=== PATIENT | female | born 1985 | race Caucasian/White ===

== ENCOUNTER 2017-01-24 17:18 | Emergency (ER) | payer SELFPAY ==
[~2017-01-24] VITALS: Ht 170.2 cm; Wt 75.0 kg
[2017-01-24 17:20] VITALS: BP 134/90; PULSE 105; RESP 13; TEMP 98; O2SAT 99
--- NOTE | 2017-01-24 17:49 | PD ---
HPI Chief Complaint: Oral / Dental Pain or Problem Time Seen by Provider: 17:39 Travel History International Travel<30 days: No Contact w/Intl Traveler<30days: No Traveled to known affect area: No History of Present Illness HPI Patient comes in complaining of left upper dental pain ongoing for 3 days. Patient reports trying [id number] medication along with an old prescription of penicillin without improvement of symptoms. Pain is sharp stabbing like in nature and is worse with eating or drinking anything. Pain radiates into her left ear. Denies any nausea, vomiting, fevers, difficulty swallowing, neck pain, chest pain, shortness breath, or . PFSH Past Medical History Medical History: Denies Significant Hx Social History Alcohol Use: No Tobacco Use: No Substance Use: Yes (marijuana) Allergies-Medications (Allergen,Severity, Reaction): Coded Allergies: No Known Allergies (Unverified , 01/24/17) Reported Meds & Prescriptions Reported Meds & Active Scripts Active Clindamycin (Clindamycin HCl) 150 Mg Cap 2 Cap PO Q6H 10 Days Review of Systems Except as stated in HPI: all other systems reviewed are Neg Physical Exam Narrative GENERAL: Well-developed, well nourished, in no acute distress, and non-ill appearing. SKIN: Focused skin assessment warm and dry. HEAD: Atraumatic. Normocephalic. EYES: Pupils equal and round. EOMI. No scleral icterus. No injection or drainage. ENT: No nasal bleeding or discharge. Mucous membranes pink and moist. Poor dentition with no visible or palpable abscess. Floor the mouth, submandibular, submental are all soft to palpation. NECK: Trachea midline. No cervical lymphadenopathy. Supple. No nuclear rigidity. RESPIRATORY: No accessory muscle use. No respiratory distress. MUSCULOSKELETAL: No obvious deformities. No clubbing. No cyanosis. No edema. Full range of motion. NEUROLOGICAL: Awake and alert. No obvious cranial nerve deficits. Motor grossly within normal limits. Normal speech. PSYCHIATRIC: Appropriate mood and affect; insight and judgment normal. Data Data Last Documented VS Vital Signs Date Time Temp Pulse Resp B/P (MAP) Pulse Ox O2 Delivery O2 Flow Rate FiO2 01/24/17 17:52 01/24/17 17:20 98.0 105 13 99 MDM Medical Decision Making Medical Screen Exam Complete: Yes Emergency Medical Condition: Yes Differential Diagnosis Dental abscess, dental infection, dentalgia, other Narrative Course The patient presented with dental pain. There is no fever. There is no significant facial swelling or evidence of cellulitis. There is poor dentition but no evidence of drainable abscess at this time. There is no evidence of significant deep or invading abscess at this time. The patient will be placed on antibiotics and pain medication. The patient was instructed to follow up with a dentist. The patient was given the dental referral sheet. Warnings were discussed with the patient regarding worsening of infection. The patient is to return if pain worsens, develops progressive swelling or facial redness or fever. The patient agrees with plan. Patient in no obvious distress upon re-evaluation. All pertinent Radiology result(s) discussed with patient. Patient was asked if they wanted to speak to my attending, which the patient did not wish to do at this time. Any questions/ concerns in reference to patient diagnosis/condition discussed and clarified prior to patient's discharge. Reinforced sheer importance of close follow up with patient's primary physician or primary care clinic and dentist. Instructed patient to return to ED immediately, if symptoms return/worsen. Patient showed understanding of above instructions. Further instructions and recommendations were detailed in discharge paperwork. Patient ambulated without difficulty out of ED at discharge. Diagnosis Primary Impression: Infected dental caries Patient Instructions: Dental Abscess (ED), Dental Caries (DC), General Instructions Additional Instructions: Follow-up with your primary care physician and dentist as soon as possible. Rinse mouth with warm salt water gargles. Take all medication as prescribed. Use owtz-ozu-[id number] Tylenol and/or ibuprofen as needed for pain. Follow instructions on the packaging. Use [id number] dental cement for pain relief. Follow instructions on the packaging. Return to the emergency department if symptoms get worse. Med/Other Pt SpecificInfo: Prescription(s) given Scripts Clindamycin (Clindamycin) 150 Mg Cap 2 CAP PO Q6H for Infection for 10 Days, CAP 0 Refills Prov: Adarsh Manuel MD 01/24/17 Disposition: 01 DISCHARGE HOME Condition: Stable Dayo Hernandez Jan 24, 2017 17:49
[2017-01-24] MEDS ORDERED: CLIN1CAP5 PO (17:50)
== END 2017-01-24 18:14 | disposition home or self-care (01) ==
LOC: NEPK 17:18
DX: K02.9 Dental caries, unspecified (principal)
CPT/HCPCS: 99283

== ENCOUNTER 2017-02-07 15:40 | Emergency (ER) | payer SELFPAY ==
[~2017-02-07] VITALS: Ht 170.2 cm; Wt 73.0 kg
[~2017-02-07 15:40] MED LIST: CLIN1CAP5 PO
[2017-02-07 15:42] VITALS: BP 145/70; PULSE 109; RESP 18; TEMP 97.7; O2SAT 99
[2017-02-07] MEDS ORDERED: SODIUM CHLOR 0.9% 1000 ML INJ 1,000 ML IV SCH (17:59)
[2017-02-07] MEDS ORDERED: ALUMINUM/MAGNESIUM/SIMETH 30 ML CUP PO ONE (18:00)
[2017-02-07] MEDS ORDERED: DICYCLOMINE HCL 10 MG CAP PO ONE (18:00)
[2017-02-07] MEDS ORDERED: SODIUM CHLORIDE 0.9% FLUSH 10 ML FLUSH IV FLUSH PRN (18:00)
[2017-02-07] MEDS ORDERED: PANTOPRAZOLE SODIUM 40 MG VIAL IVP ONE (18:00)
[2017-02-07] MEDS ORDERED: LIDOCAINE VISCOUS 2% SOLN 15 ML UDC PO ONE (18:00)
[2017-02-07] MEDS ORDERED: ONDANSETRON HCL 4 MG/2 ML VIAL IVP ONE (18:00)
[2017-02-07 18:19] LABS: AUTOMATED NEUTROPHIL # 5.7 TH/MM3 (1.8-7.7); BASOPHIL % 0.4 % (0.0-2.0); EOSINOPHIL # 0.2 TH/MM3 (0-0.4); EOSINOPHIL % 1.9 % (0.0-4.0); HEMATOCRIT 39.1 % (35.0-46.0); HEMO FLAGS DIFF FINAL; LYMPH % 28.8 % (9.0-44.0); LYMPHOCYTE # 2.7 TH/MM3 (1.0-4.8); MEAN CELL VOLUME 94.2 FL (80.0-100.0); MEAN CORPUSCULAR HEMOGLOBIN 32.5 PG (27.0-34.0); MEAN CORPUSCULAR HGB CONC 34.5 % (32.0-36.0); MONO % 8.7 % (0.0-8.0); NEUT % 60.2 % (16.0-70.0); PLATELET COUNT 227 TH/MM3 (150-450); RED BLOOD COUNT 4.15 MIL/MM3 (4.00-5.30); WHITE BLOOD COUNT 9.5 TH/MM3 (4.0-11.0)
[2017-02-07 18:52] LABS: ANION GAP 7 MEQ/L (5-15); AST (GOT) 12 U/L (15-37); BICARBONATE 25.5 MEQ/L (21.0-32.0); BLOOD UREA NITROGEN 14 MG/DL (7-18); CHLORIDE 107 MEQ/L (98-107); GLOMERULAR FILTRATION RATE 81 ML/MIN (>89); SODIUM (NA) 139 MEQ/L (136-145)
[2017-02-07 18:53] LABS: ALT (GPT) 17 U/L (10-53)
[2017-02-07 18:56] LABS: ALKALINE PHOSPHATASE 70 U/L (45-117)
[2017-02-07] MEDS ORDERED: ZOFR4TAB3 SL (19:03)
[2017-02-07] MEDS ORDERED: OMEP20TA PO (19:03)
--- NOTE | 2017-02-07 19:03 | PD ---
HPI Chief Complaint: Abdominal Pain Time Seen by Provider: 17:55 Travel History International Travel<30 days: No Contact w/Intl Traveler<30days: No Traveled to known affect area: No History of Present Illness HPI 31 yo F c/o epigastric abdominal pain x approx 1 day. Previously Nexium and Zantact had been helpful however she ran out having relocated from [place]. Nausea and vomiting x 3 is reported. Pt describes pain as gas like. No hematemesis. No fever. No vb/vd. PFSH Past Medical History ?: Not LMP: 01/2017 Social History Alcohol Use: No Tobacco Use: No Substance Use: Yes (marijuana) Allergies-Medications (Allergen,Severity, Reaction): Coded Allergies: No Known Allergies (Unverified , 02/07/17) Reported Meds & Prescriptions Reported Meds & Active Scripts Active Zofran Odt (Ondansetron Odt) 4 Mg Tab 4 Mg SL Q8HR PRN Omeprazole 20 Mg Tab 20 Mg PO DAILY Clindamycin (Clindamycin HCl) 150 Mg Cap 2 Cap PO Q6H 10 Days Review of Systems Except as stated in HPI: all other systems reviewed are Neg General / Constitutional: No: Fever Gastrointestinal: Positive: Nausea, Vomiting, Abdominal Pain Physical Exam Narrative GENERAL: 31 yo F, WNWD, mild distress 2/2 pain SKIN: Warm and dry. HEAD: Atraumatic. Normocephalic. EYES: Pupils equal and round. No scleral icterus. No injection or drainage. ENT: No nasal bleeding or discharge. Mucous membranes pink and moist. NECK: Trachea midline. No JVD. CARDIOVASCULAR: Regular rate and rhythm. RESPIRATORY: No accessory muscle use. Clear to auscultation. Breath sounds equal bilaterally. GASTROINTESTINAL: Soft. Minimal epigastric TTP. No rebound. MUSCULOSKELETAL: Extremities without clubbing, cyanosis, or edema. No obvious deformities. NEUROLOGICAL: Awake and alert. No obvious cranial nerve deficits. Motor grossly within normal limits. Five out of 5 muscle strength in the arms and legs. Normal speech. PSYCHIATRIC: Appropriate mood and affect; insight and judgment normal. Data Data Last Documented VS Vital Signs Date Time Temp Pulse Resp B/P (MAP) Pulse Ox O2 Delivery O2 Flow Rate FiO2 02/07/17 15:42 97.7 109 18 145/70 (95) 99 VS reviewed; HR trended down to 65 Orders Orders Complete Blood Count With Diff (02/07/17 17:59) Comprehensive Metabolic Panel (02/07/17 17:59) Lipase (02/07/17 17:59) Iv Access Insert/Monitor (02/07/17 17:59) Ecg Monitoring (02/07/17 17:59) Oximetry (02/07/17 17:59) Ondansetron Inj (Zofran Inj) (02/07/17 18:00) Pantoprazole Inj (Protonix Inj) (02/07/17 18:00) Sodium Chlor 0.9% 1000 Ml Inj (Ns 1000 M (02/07/17 17:59) Sodium Chloride 0.9% Flush (Ns Flush) (02/07/17 18:00) Dicyclomine (Bentyl) (02/07/17 18:00) Al-Mag Hy-Si 40-40-4 Mg/Ml Liq (Mag-Al P (02/07/17 18:00) Lidocaine 2% Viscous (Xylocaine 2% Visco (02/07/17 18:00) Ed Urine Pregnancytest Poc (02/07/17 17:59) Labs Laboratory Tests Test 02/07/17 18:09 White Blood Count 9.5 TH/MM3 Red Blood Count 4.15 MIL/MM3 Hemoglobin 13.5 GM/DL Hematocrit 39.1 % Mean Corpuscular Volume 94.2 FL Mean Corpuscular Hemoglobin 32.5 PG Mean Corpuscular Hemoglobin Concent 34.5 % Red Cell Distribution Width 13.0 % Platelet Count 227 TH/MM3 Mean Platelet Volume 9.6 FL Neutrophils (%) (Auto) 60.2 % Lymphocytes (%) (Auto) 28.8 % Monocytes (%) (Auto) 8.7 % Eosinophils (%) (Auto) 1.9 % Basophils (%) (Auto) 0.4 % Neutrophils # (Auto) 5.7 TH/MM3 Lymphocytes # (Auto) 2.7 TH/MM3 Monocytes # (Auto) 0.8 TH/MM3 Eosinophils # (Auto) 0.2 TH/MM3 Basophils # (Auto) 0.0 TH/MM3 CBC Comment DIFF FINAL Differential Comment Blood Urea Nitrogen 14 MG/DL Creatinine 0.82 MG/DL Random Glucose 95 MG/DL Total Protein 7.2 GM/DL Albumin 4.0 GM/DL Calcium Level 8.9 MG/DL Alkaline Phosphatase 70 U/L Aspartate Amino Transf (AST/SGOT) 12 U/L Alanine Aminotransferase (ALT/SGPT) 17 U/L Total Bilirubin 1.0 MG/DL Sodium Level 139 MEQ/L Potassium Level 4.0 MEQ/L Chloride Level 107 MEQ/L Carbon Dioxide Level 25.5 MEQ/L Anion Gap 7 MEQ/L Estimat Glomerular Filtration Rate 81 ML/MIN Lipase 277 U/L MDM Medical Decision Making Medical Screen Exam Complete: Yes Emergency Medical Condition: Yes Medical Record Reviewed: Yes Differential Diagnosis Gastritis, pancreatitis, appendicitis, acute cholecystitis, ascending cholangitis, AAA, perforated viscous, mesenteric ischemia, hepatitis, cystitis, hydronephrosis/hydroureter/nephroureter calculus, mesenteric adenitis, biliary colic Narrative Course CBC & BMP Diagram 02/07/17 18:09 Total Protein 7.2, Albumin 4.0, Calcium Level 8.9, Alkaline Phosphatase 70, Aspartate Amino Transf (AST/SGOT) 12 L, Alanine Aminotransferase (ALT/SGPT) 17, Total Bilirubin 1.0 Lipase normal The patient is resting comfortably and feels better, is alert and in no distress. The patients results and examination findings were discussed. The repeat examination is unremarkable and benign. The history, exam, diagnostic testing, and current condition do not suggest any significant pathology to warrant further testing, continued ED treatment, admission, or surgical evaluation at this point. The vital signs have been stable. The patient does not have uncontrollable pain, intractable vomiting, or other significant symptoms. The patient's condition is stable and appropriate for discharge. The patient will pursue further outpatient evaluation with a primary care physician or other designated or consulting physician as indicated in the discharge instructions. The patient expressed understanding and was agreeable with this plan. Diagnosis Primary Impression: Gastritis Qualified Codes: K29.50 - Unspecified chronic gastritis without bleeding Additional Impression: Vomiting Qualified Codes: R11.2 - Nausea with vomiting, unspecified Referrals: [facility] 2 days Additional Instructions: You have a choice when it comes to health care, and we are glad that you chose [facility]. Hopefully, we have met your expectations on today's visit. You are welcome to return to [facility] at any time, as we are committed to meeting the health care needs of our community. Med/Other Pt SpecificInfo: Prescription(s) given Scripts Ondansetron Odt (Zofran Odt) 4 Mg Tab 4 MG SL Q8HR Y for Nausea/Vomiting, #10 TAB 0 Refills Prov: Adarsh Manuel MD 02/07/17 Omeprazole (Omeprazole) 20 Mg Tab 20 MG PO DAILY, #30 TAB 0 Refills Prov: Adarsh Manuel MD 02/07/17 Disposition: 01 DISCHARGE HOME Condition: Stable Adarsh Manuel MD Feb 07, 2017 19:03
[2017-02-07 19:48] VITALS: BP 132/75
== END 2017-02-07 19:50 | disposition home or self-care (01) ==
LOC: NEPD 15:40
DX: K29.70 Gastritis, unspecified, without bleeding (principal); Z79.899 Other long term (current) drug therapy
CPT/HCPCS: 80053; 83690; 85025; 96374; 96375; 99284; C9113; J2405; J7030

== ENCOUNTER 2017-05-17 13:12 | Emergency (ER) | payer SELFPAY ==
[~2017-05-17] VITALS: Ht 170.2 cm; Wt 73.0 kg
[~2017-05-17 13:12] MED LIST changes: +CLIN150C14 PO; -CLIN1CAP5 PO; +OMEP20TA93 PO; +ZOFR4TAB3 SL
[2017-05-17 13:14] VITALS: BP 115/71; PULSE 73; RESP 16; TEMP 97.9; O2SAT 97
[2017-05-17] MEDS ORDERED: PERI0.126 SWISH-SPIT (14:06)
[2017-05-17] MEDS ORDERED: AMOX500C PO (14:06)
[2017-05-17] MEDS ORDERED: IBUP1TAB7 PO (14:06)
--- NOTE | 2017-05-17 14:07 | PD ---
HPI Chief Complaint: Oral / Dental Pain or Problem Time Seen by Provider: 14:01 Travel History International Travel<30 days: No Contact w/Intl Traveler<30days: No Traveled to known affect area: No History of Present Illness HPI 31-year-old female presents to emergency department complaining of left upper dental pain that started today. She said a small piece of her tooth chipped off and it feels like there is a hole in her tooth. Denies sore throat, difficulty swallowing, unusual drooling. Denies fever, vomiting. Has taken Tylenol for symptom management. Rates pain 10/10. Describes it as a throbbing sensation. Radiates to left year. Constantly aggravated. No known relieving factors. No known allergies. No primary care provider. Denies significant past medical history. Has no medical complaints. No other modifying factors or associated signs and symptoms. PFSH Past Medical History Diminished Hearing: No ?: Not Social History Alcohol Use: No Tobacco Use: No Substance Use: Yes (marijuana) Allergies-Medications (Allergen,Severity, Reaction): Coded Allergies: No Known Allergies (Unverified Adverse Reaction, Unknown, 05/17/17) Reported Meds & Prescriptions Reported Meds & Active Scripts Active Ibuprofen 800 Mg Tab 800 Mg PO Q6HR PRN Peridex Liq (Chlorhexidine Gluconate (Mouth) Liq) 0.12% Soln 15 Ml SWISH-SPIT BID 10 Days Amoxicillin 500 Mg Cap 500 Mg PO BID 10 Days Zofran Odt (Ondansetron Odt) 4 Mg Tab 4 Mg SL Q8HR PRN Omeprazole 20 Mg Tab 20 Mg PO DAILY Clindamycin (Clindamycin HCl) 150 Mg Cap 2 Cap PO Q6H 10 Days Review of Systems Except as stated in HPI: all other systems reviewed are Neg Physical Exam Narrative GENERAL: Well-nourished, well-developed female patient, in no acute distress; afebrile, nontoxic-appearing SKIN: Warm and dry. HEAD: Atraumatic. Normocephalic. No facial edema, erythema, tenderness on palpation. No lymphadenopathy. EYES: Pupils equal and round. No scleral icterus. No injection or drainage. ENT: Mucosa pink and moist. No erythema or exudates. No uvular edema. No uvular , palatal, or tonsillar deviation. Airway patent. EARS: Bilateral pinnae and external canals appear within normal limits. Bilateral tympanic membranes without erythema, dullness or perforation. MOUTH: Mucous membranes moist, no lesions, tongue and gums appear normal. Left upper wisdom tooth with tenderness on palpation; with large dental cavity and decay. Surrounding gingiva is without erythema, edema, drainage. No obvious abscess noted. NECK: Trachea midline. No lymphadenopathy. CARDIOVASCULAR: Regular rate. RESPIRATORY: No accessory muscle use. GASTROINTESTINAL: Rounded. MUSCULOSKELETAL: No obvious deformities. No clubbing. No cyanosis. No edema. NEUROLOGICAL: Awake and alert. Oriented 3. No obvious cranial nerve deficits. Motor grossly within normal limits. Normal speech. PSYCHIATRIC: Appropriate mood and affect; insight and judgment normal. Data Data Last Documented VS Vital Signs Date Time Temp Pulse Resp B/P (MAP) Pulse Ox O2 Delivery O2 Flow Rate FiO2 05/17/17 14:24 05/17/17 13:14 97.9 73 16 97 Room Air Orders Orders Ketorolac Inj (Toradol Inj) (05/17/17 14:15) Ed Discharge Order (05/17/17 14:07) [facility] Medical Decision Making Medical Screen Exam Complete: Yes Emergency Medical Condition: Yes Medical Record Reviewed: Yes Differential Diagnosis Infected dental cavity, dental caries, dental abscess, dentalgia Narrative Course 31-year-old male with large dental cavity and decay and tooth pain to October wisdom tooth. No facial edema or erythema. Patient is afebrile and nontoxic appearing. Denies fever, vomiting. Toradol administered in the ER. Ibuprofen , amoxicillin, Peridex mouth rinse prescribed for home. Instructed patient to follow up with dentist. Emergency dental information sheet provided. Instructed patient to follow up with primary care provider. Patient verbalizes understanding and agreement with treatment plan. Patient is medically cleared and stable for discharge. Discussed reasons to return to the emergency department. Patient agrees with treatment plan. The patients vital signs are stable and the patient is stable for outpatient follow-up and treatment. Patient discharged home, stable and in no acute distress. Diagnosis Primary Impression: Toothache Additional Impression: Dental cavities Referrals: Dentist Primary Care Physician Patient Instructions: Dental Abscess (ED), Dental Caries (ED), General Instructions, Toothache (ED) Additional Instructions: Complete full course of antibiotics Ibuprofen or Tylenol as directed and as needed to reduce pain and inflammation Use Peridex as directed for oral hygiene Warm or cool compresses to the affected area Follow-up with dentist Follow-up with primary care provider Return to emergency department immediately with worsening of symptoms Med/Other Pt SpecificInfo: Prescription(s) given Scripts Ibuprofen (Ibuprofen) 800 Mg Tab 800 MG PO Q6HR Y for PAIN, #30 TAB 0 Refills Prov: Glo Fournier 05/17/17 Chlorhexidine Gluconate (Mouth) Liq (Peridex Liq) 0.12% Soln 15 ML SWISH-SPIT BID for 10 Days, #300 ML 0 Refills Prov: Glo Fournier 05/17/17 Amoxicillin (Amoxicillin) 500 Mg Cap 500 MG PO BID for Infection for 10 Days, #20 CAP 0 Refills Prov: Glo Fournier 05/17/17 Disposition: 01 DISCHARGE HOME Condition: Stable Glo Fournier May 17, 2017 14:06
[2017-05-17] MEDS ORDERED: KETOROLAC TROMETHAMINE 60 MG/2 ML (IM) VIAL IM ONE (14:15)
== END 2017-05-17 14:31 | disposition home or self-care (01) ==
LOC: NEPK 13:12
DX: K02.9 Dental caries, unspecified (principal); Z79.899 Other long term (current) drug therapy
CPT/HCPCS: 96372; 99284; J1885

== ENCOUNTER 2017-06-13 13:59 | Observation (INO) | payer SELFPAY ==
[~2017-06-13] VITALS: Ht 170.2 cm; Wt 75.0 kg
[~2017-06-13 13:59] MED LIST changes: +AMOX500C PO; +IBUP1TAB7 PO; +PERI0.126 SWISH-SPIT
[2017-06-13 14:01] VITALS: BP 140/65; PULSE 100; RESP 24; TEMP 97.6; O2SAT 96
--- NOTE | 2017-06-13 14:26 | PD ---
HPI Chief Complaint: Respiratory Symptoms Time Seen by Provider: 14:17 Travel History International Travel<30 days: No Contact w/Intl Traveler<30days: No Traveled to known affect area: No History of Present Illness HPI This is a 31-year-old female who reports that she has a history of mild asthma resents for any shortness of breath. She says for 2 days she has been increasingly short of breath, constant, severe,, feeling like she is breathing through a straw. She denies any associated cough, sputum production, fevers or chills. She has never had a problem like this before. [facility] Past Medical History Diminished Hearing: No Social History Alcohol Use: No Tobacco Use: No Substance Use: Yes (marijuana) Allergies-Medications (Allergen,Severity, Reaction): Coded Allergies: No Known Allergies (Unverified Adverse Reaction, Unknown, 05/17/17) Reported Meds & Prescriptions Reported Meds & Active Scripts Active Review of Systems Except as stated in HPI: all other systems reviewed are Neg Physical Exam Narrative GENERAL: Moderate respiratory distress SKIN: Focused skin assessment warm and dry. HEAD: Atraumatic. Normocephalic. EYES: Pupils equal and round. No injection or drainage. ENT: Moist mucous membranes NECK: Trachea midline. CARDIOVASCULAR: Regular rate and rhythm. No murmur appreciated. RESPIRATORY: Tachypnea, increased work of breathing, diffuse wheezing, speaking 2-3 word sentences GASTROINTESTINAL: Abdomen soft, non-tender, nondistended. MUSCULOSKELETAL: No obvious deformities. NEUROLOGICAL: Awake and alert. No obvious cranial nerve deficits. Moving all extremities PSYCHIATRIC: Appropriate mood and affect; insight and judgment normal. Data Data Last Documented VS Vital Signs Date Time Temp Pulse Resp B/P (MAP) Pulse Ox O2 Delivery O2 Flow Rate FiO2 06/13/17 16:55 106 22 123/69 (87) 96 Room Air 06/13/17 14:01 97.6 Orders Orders Complete Blood Count With Diff (06/13/17 14:24) Comprehensive Metabolic Panel (06/13/17 14:24) Chest, Single Ap (06/13/17 14:24) Ecg Monitoring (06/13/17 14:24) Iv Access Insert/Monitor (06/13/17 14:24) Oximetry (06/13/17 14:24) Oxygen Administration (06/13/17 14:24) Methylprednisolone So Succ Inj (Solumedr (06/13/17 14:30) Albuterol-Ipratropium Neb (Duoneb Neb) (06/13/17 14:30) Sodium Chloride 0.9% Flush (Ns Flush) (06/13/17 14:30) Acetaminophen (Tylenol) (06/13/17 15:15) Lorazepam Inj (Ativan Inj) (06/13/17 16:00) Ketorolac Inj (Toradol Inj) (06/13/17 16:15) Albuterol Concentrated Neb (Albuterol Co (06/13/17 17:30) Admit Order (Ed Use Only) (06/13/17 17:27) Labs Laboratory Tests Test 06/13/17 14:35 06/13/17 15:11 White Blood Count 11.2 TH/MM3 Red Blood Count 4.34 MIL/MM3 Hemoglobin 14.4 GM/DL Hematocrit 39.5 % Mean Corpuscular Volume 91.1 FL Mean Corpuscular Hemoglobin 33.3 PG Mean Corpuscular Hemoglobin Concent 36.5 % Red Cell Distribution Width 13.1 % Platelet Count 247 TH/MM3 Mean Platelet Volume 10.1 FL Neutrophils (%) (Auto) 70.6 % Lymphocytes (%) (Auto) 19.3 % Monocytes (%) (Auto) 7.0 % Eosinophils (%) (Auto) 2.2 % Basophils (%) (Auto) 0.9 % Neutrophils # (Auto) 7.9 TH/MM3 Lymphocytes # (Auto) 2.2 TH/MM3 Monocytes # (Auto) 0.8 TH/MM3 Eosinophils # (Auto) 0.2 TH/MM3 Basophils # (Auto) 0.1 TH/MM3 CBC Comment AUTO DIFF Differential Comment AUTO DIFF CONFIRMED Platelet Estimate NORMAL Platelet Morphology Comment ENLARGED Red Cell Morphology Comment NORMAL Blood Urea Nitrogen 11 MG/DL Creatinine 0.72 MG/DL Random Glucose 101 MG/DL Total Protein 7.1 GM/DL Albumin 3.8 GM/DL Calcium Level 8.5 MG/DL Alkaline Phosphatase 61 U/L Aspartate Amino Transf (AST/SGOT) 15 U/L Alanine Aminotransferase (ALT/SGPT) 15 U/L Total Bilirubin 1.1 MG/DL Sodium Level 142 MEQ/L Potassium Level 3.5 MEQ/L Chloride Level 112 MEQ/L Carbon Dioxide Level 21.6 MEQ/L Anion Gap 8 MEQ/L Estimat Glomerular Filtration Rate 94 ML/MIN MDM Medical Decision Making Medical Screen Exam Complete: Yes Emergency Medical Condition: Yes Interpretation(s) afebrile, mild tachycardia leukocytosis electrolytes within normal limits no acute process Differential Diagnosis Acute asthma exacerbation, bronchitis, pneumonia, pneumothorax Narrative Course This is a 31-year-old female who presents to the emergency department with shortness of breath it has been going on for several days. She is acutely dyspneic on exam, speaking 2-3 word sentences. She is diffusely wheezing consistent with asthma. She was given serial bronchodilators and steroids. Chest x-ray is reassuring. Patient continues to have wheezing and is tachypneic. I think she requires observation for continued treatment of asthma. Physician Communication Physician Communication Discussed with Dr. Kim Diagnosis Primary Impression: Asthma exacerbation Qualified Codes: J45.41 - Moderate persistent asthma with (acute) exacerbation Admitting Information Admitting Physician Requests: Observation Rubi Holland MD Jun 13, 2017 14:26
[2017-06-13] MEDS ORDERED: SODIUM CHLORIDE 0.9% FLUSH 10 ML FLUSH IVF PRN (14:30)
[2017-06-13] MEDS ORDERED: methylPREDNISolone SOD SUCC 125 MG/2 ML VIAL IV PUSH ONE (14:30)
[2017-06-13] MEDS: RESP: ALBUTEROL 2.5 MG/IPRATROPIUM 0.5 MG NEB (SCH) INH ×2 (14:37→14:38)
[2017-06-13 14:56] LABS: AUTOMATED NEUTROPHIL # 7.9 TH/MM3 (1.8-7.7); BASOPHIL # 0.1 TH/MM3 (0-0.2); BASOPHIL % 0.9 % (0.0-2.0); EOSINOPHIL # 0.2 TH/MM3 (0-0.4); EOSINOPHIL % 2.2 % (0.0-4.0); HEMATOCRIT 39.5 % (35.0-46.0); HEMOGLOBIN 14.4 GM/DL (11.6-15.3); LYMPH % 19.3 % (9.0-44.0); LYMPHOCYTE # 2.2 TH/MM3 (1.0-4.8); MEAN CELL VOLUME 91.1 FL (80.0-100.0); MEAN CORPUSCULAR HEMOGLOBIN 33.3 PG (27.0-34.0); MEAN PLATELET VOLUME 10.1 FL (7.0-11.0); MONOCYTE # 0.8 TH/MM3 (0-0.9); NEUT % 70.6 % (16.0-70.0); PLATELET COUNT 247 TH/MM3 (150-450); RED BLOOD COUNT 4.34 MIL/MM3 (4.00-5.30); RED CELL DISTRIBUTION WIDTH 13.1 % (11.6-17.2); WHITE BLOOD COUNT 11.2 TH/MM3 (4.0-11.0)
[2017-06-13 14:59] LABS: MEAN CORPUSCULAR HGB CONC 36.5 % (32.0-36.0)
--- NOTE | 2017-06-13 15:00 | RADRPT ---
EXAM DATE/TIME: 06/13/2017 14:28 [place] COMPARISON: No previous studies available for comparison. INDICATIONS : Wheezing. MEDICAL HISTORY : asthma SURGICAL HISTORY : None. ENCOUNTER: Initial ACUITY: 2 days PAIN SCORE: 0/10 LOCATION: Bilateral chest FINDINGS: A single view of the chest demonstrates the lungs to be symmetrically aerated without evidence of mas s, infiltrate or effusion. The cardiomediastinal contours are unremarkable. Osseous structures are intact. CONCLUSION: No acute disease. Isrrael Kumari MD FACR on June 13, 2017 at 14:57 Board Certified Radiologist. This report was verified electronically.
[2017-06-13] MEDS ORDERED: ACETAMINOPHEN 500 MG CPLT PO ONE (15:15)
[2017-06-13 15:43] LABS: ALBUMIN 3.8 GM/DL (3.4-5.0); ALT (GPT) 15 U/L (10-53); AST (GOT) 15 U/L (15-37); BICARBONATE 21.6 MEQ/L (21.0-32.0); BLOOD UREA NITROGEN 11 MG/DL (7-18); CALCIUM 8.5 MG/DL (8.5-10.1); CHLORIDE 112 MEQ/L (98-107); CREATININE 0.72 MG/DL (0.50-1.00); GLOMERULAR FILTRATION RATE 94 ML/MIN (>89); GLUCOSE,RANDOM 101 MG/DL (74-106); SODIUM (NA) 142 MEQ/L (136-145)
[2017-06-13 15:45] LABS: ALKALINE PHOSPHATASE 61 U/L (45-117); TOTAL BILIRUBIN ADULT 1.1 MG/DL (0.2-1.0); TOTAL PROTEIN 7.1 GM/DL (6.4-8.2)
[2017-06-13] MEDS ORDERED: LORazepam 2 MG/ML VIAL IV PUSH ONE (16:00)
[2017-06-13] MEDS ORDERED: KETOROLAC TROMETHAMINE 30 MG/ML (IVP) VIAL IV PUSH ONE (16:15)
[2017-06-13 16:55] VITALS: BP 123/69; PULSE 106; RESP 22; O2SAT 96
[2017-06-13] MEDS ORDERED: RESP: ALBUTEROL CONC 2.5 MG/0.5 ML NEB NEB ONE (17:30)
--- NOTE | 2017-06-13 17:33 | HHI.HP ---
[facility] No Primary Care Physician Admission Diagnosis asthma exacerbation Diagnoses: Chief Complaint: Shortness of breath Travel History International Travel<30 Days: No Contact w/Intl Traveler <30 Da: No Traveled to Known Affected Are: No History of Present Illness This is a pleasant 31 y/o Female with history of Asthma, who started with Shortness of breath and came to ER She says for 2 days she has been increasingly short of breath, constant, severe, , feeling like she is breathing through a straw. She denies any associated cough, sputum production, fevers or chills. the patient states she is been very anxious asking for anxiety medicine, will be observed for the next 23 hours and may be discharged in am tomorrow, will give IV fluids, will take drug screen and follow. Review of Systems Constitutional: DENIES: Fever, Chills, Change in appetite Endocrine: DENIES: Heat/cold intolerance Eyes: DENIES: Blurred vision, Eye pain Respiratory: COMPLAINS OF: Shortness of breath Psychiatric: COMPLAINS OF: Anxiety Except as stated in HPI: all other systems reviewed are Neg Past Family Social History Past Medical History Asthma Past Surgical History Denies any Surgical History Reported Medications Reported Meds & Active Scripts Active Allergies: Coded Allergies: No Known Allergies (Unverified Adverse Reaction, Unknown, 05/17/17) Active Ordered Medications Current Medications Medications (Trade) Dose Ordered Sig/Mary Alice Route Start Time Stop Time Status Last Admin (NS Flush) 2 ml UNSCH PRN IVF 06/13/17 14:30 06/13/17 16:16 Sodium Chloride 1,000 ml @ 100 mls/hr Q10H IV 06/13/17 17:34 UNV (NS Flush) 2 ml UNSCH PRN IV FLUSH 06/13/17 17:45 UNV (NS Flush) 2 ml BID IV FLUSH 06/13/17 21:00 UNV (Tylenol) 650 mg Q4H PRN PO 06/13/17 17:45 UNV (Zofran Inj) 4 mg Q6H PRN IVP 06/13/17 17:45 UNV (Lovenox Inj) 40 mg Q24H SQ 06/13/17 17:45 UNV (Narcan Inj) 0.4 mg UNSCH PRN IV PUSH 06/13/17 17:45 UNV (Senokot) 17.2 mg Q12H PRN PO 06/13/17 17:45 UNV (Dulcolax Supp) 10 mg DAILY PRN RECTAL 06/13/17 17:45 UNV (Lactulose Liq) 30 ml DAILY PRN PO 06/13/17 17:45 UNV (Duoneb Neb) 1 ampule Q4HR NEB NEB 06/13/17 20:00 UNV (Mucinex Er) 600 mg BID PO 06/13/17 21:00 UNV Family History Mother with CAD and DM II Social History marijuana abuse Physical Exam Vital Signs Vital Signs Date Time Temp Pulse Resp B/P (MAP) Pulse Ox O2 Delivery O2 Flow Rate FiO2 06/13/17 16:55 106 22 123/69 (87) 96 Room Air 06/13/17 14:01 97.6 100 24 140/65 (90) 96 Physical Exam GENERAL: Alert and Oriented, no distress. SKIN: Focused skin assessment warm and dry. HEAD: Atraumatic. Normocephalic. EYES: Pupils equal and round. No injection or drainage. ENT: Moist mucous membranes NECK: Trachea midline. CARDIOVASCULAR: Regular rate and rhythm. No murmur appreciated. tachycardia. RESPIRATORY: expiratory wheezing is mild and no crackles. good breath sounds. GASTROINTESTINAL: Abdomen soft, non-tender, nondistended. MUSCULOSKELETAL: No obvious deformities. NEUROLOGICAL: Awake and alert. No obvious cranial nerve deficits. Moving all extremities PSYCHIATRIC: Appropriate mood and affect; insight and judgment normal. Laboratory Laboratory Tests Test 06/13/17 14:35 06/13/17 15:11 White Blood Count 11.2 Red Blood Count 4.34 Hemoglobin 14.4 Hematocrit 39.5 Mean Corpuscular Volume 91.1 Mean Corpuscular Hemoglobin 33.3 Mean Corpuscular Hemoglobin Concent 36.5 Red Cell Distribution Width 13.1 Platelet Count 247 Mean Platelet Volume 10.1 Neutrophils (%) (Auto) 70.6 Lymphocytes (%) (Auto) 19.3 Monocytes (%) (Auto) 7.0 Eosinophils (%) (Auto) 2.2 Basophils (%) (Auto) 0.9 Neutrophils # (Auto) 7.9 Lymphocytes # (Auto) 2.2 Monocytes # (Auto) 0.8 Eosinophils # (Auto) 0.2 Basophils # (Auto) 0.1 CBC Comment AUTO DIFF Differential Comment AUTO DIFF CONFIRMED Platelet Estimate NORMAL Platelet Morphology Comment ENLARGED Red Cell Morphology Comment NORMAL Blood Urea Nitrogen 11 Creatinine 0.72 Random Glucose 101 Total Protein 7.1 Albumin 3.8 Calcium Level 8.5 Alkaline Phosphatase 61 Aspartate Amino Transf (AST/SGOT) 15 Alanine Aminotransferase (ALT/SGPT) 15 Total Bilirubin 1.1 Sodium Level 142 Potassium Level 3.5 Chloride Level 112 Carbon Dioxide Level 21.6 Anion Gap 8 Estimat Glomerular Filtration Rate 94 Result Diagram: 06/13/17 1435 06/13/17 1511 Imaging Last Impressions Chest X-Ray 06/13/17 1424 Signed Impressions: Service Date/Time: Tuesday, June 13, 2017 14:28 - CONCLUSION: No acute disease. Isrrael Kumari MD FACR Caprini VTE Risk Assessment Caprini VTE Risk Assessment: No/Low Risk (score <= 1) Caprini Risk Assessment Model Point Value = 1 Point Value = 2 Point Value = 3 Point Value = 5 Age 41-60 Minor surgery BMI > 25 kg/m2 Swollen legs Varicose veins or History of unexplained or recurrent spontaneous Oral contraceptives or hormone replacement Sepsis (< 1 month) Serious lung disease, including pneumonia (< 1 month) Abnormal pulmonary function Acute myocardial infarction Congestive heart failure (< 1 month) History of inflammatory bowel disease Medical patient at bed rest Age 61-74 Arthroscopic surgery Major open surgery (> 45 min) Laparoscopic surgery (> 45 min) Malignancy Confined to bed (> 72 hours) Immobilizing plaster cast Central venous access Age >= 75 History of VTE Family history of VTE Factor V Leiden Prothrombin [id number] Lupus anticoagulant Anticardiolipin antibodies Elevated serum homocysteine Heparin-induced thrombocytopenia Other congenital or acquired thrombophilia Stroke (< 1 month) Elective arthroplasty Hip, pelvis, or leg fracture Acute spinal cord injury (< 1 month) Prophylaxis Regimen Total Risk Factor Score Risk Level Prophylaxis Regimen 0-1 Low Early ambulation 2 Moderate Order ONE of the following: *Sequential Compression Device (SCD) *Heparin 5000 units SQ BID 3-4 Higher Order ONE of the following medications: *Heparin 5000 units SQ TID *Enoxaparin/Lovenox 40 mg SQ daily (WT < 150 kg, CrCl > 30 mL/min) *Enoxaparin/Lovenox 30 mg SQ daily (WT < 150 kg, CrCl > 10-29 mL/min) *Enoxaparin/Lovenox 30 mg SQ BID (WT < 150 kg, CrCl > 30 mL/min) AND/OR *Sequential Compression Device (SCD) 5 or more Highest Order ONE of the following medications: *Heparin 5000 units SQ TID (Preferred with Epidurals) *Enoxaparin/Lovenox 40 mg SQ daily (WT < 150 kg, CrCl > 30 mL/min) *Enoxaparin/Lovenox 30 mg SQ daily (WT < 150 kg, CrCl > 10-29 mL/min) *Enoxaparin/Lovenox 30 mg SQ BID (WT < 150 kg, CrCl > 30 mL/min) AND *Sequential Compression Device (SCD) Assessment and Plan Assessment and Plan 1. Acute Asthma attack was admitted for observation will get Laboratory and continue Duoneb treatments, Mucolytic and Incentive spirometry. 2. marijuana abuse strongly recommended to stop smoking 3. Anxiety disorder, Ativan as needed for anxiety 4. Low back pain chronic on Toradol as needed DVT prophylaxis with Lovenox Code Status Full Code. Discussed Condition With Rubi Holland MD, Guillermo MD Jun 13, 2017 17:33
[2017-06-13] MEDS ORDERED: SENNOSIDES 8.6 MG TAB PO PRN (17:45)
[2017-06-13] MEDS ORDERED: LACTULOSE SYRUP 20 GM/30 ML CUP PO PRN (17:45)
[2017-06-13] MEDS ORDERED: ONDANSETRON HCL 4 MG/2 ML VIAL IVP PRN (17:45)
[2017-06-13] MEDS ORDERED: NALOXONE HCL 0.4 MG/ML AMP IV PUSH PRN (17:45)
[2017-06-13] MEDS ORDERED: BISACODYL 10 MG SUPP RECTAL PRN (17:45)
[2017-06-13] MEDS ORDERED: SODIUM CHLORIDE 0.9% FLUSH 10 ML FLUSH IV FLUSH PRN (17:45)
[2017-06-13] MEDS ORDERED: ACETAMINOPHEN 325 MG TAB PO PRN (17:45)
[2017-06-13] MEDS: LORazepam 0.5 MG TAB PO PRN (19:48)
[2017-06-13] MEDS ORDERED: ENOXAPARIN SODIUM 40 MG/0.4 ML SYRINGE SQ SCH (20:00)
[2017-06-13] MEDS: KETOROLAC TROMETHAMINE 10 MG TAB PO PRN (20:02)
[2017-06-13] MEDS: RESP: ALBUTEROL 2.5 MG/IPRATROPIUM 0.5 MG NEB (SCH) NEB ×2 (20:06→23:56)
[2017-06-13 20:27] VITALS: BP 133/69; PULSE 88; RESP 18; TEMP 98.8; O2SAT 99
[2017-06-13] MEDS: guaiFENesin E.R. 600 MG TAB PO SCH (21:59)
[2017-06-13] MEDS: SODIUM CHLORIDE 0.9% FLUSH 10 ML FLUSH IV FLUSH SCH (22:02)
[2017-06-13 22:08] LABS: BILIRUBIN, URINE NEG (NEG); BLOOD, URINE SMALL (NEG); GLUCOSE,URINE NEG (NEG); KETONE, URINE NEG (NEG); MUCUS URINE FEW /lpf (OCC); NITRITE,URINE NEG (NEG); SQUAMOUS EPITHELIAL CELL URINE <1 /hpf (0-5); URINE COLOR LIGHT-YELLOW (YELLW/STRAW); URINE LEUKOCYTE ESTERASE NEG (NEG)
[2017-06-14] VITALS: BP 112/56; PULSE 98; RESP 20; TEMP 97.5; O2SAT 99
[2017-06-14] MEDS ORDERED: LORazepam 1 MG TAB PO ONE (00:45)
[2017-06-14] MEDS: RESP: ALBUTEROL 2.5 MG/IPRATROPIUM 0.5 MG NEB (SCH) NEB ×4 (03:14→16:00)
[2017-06-14 05:01] VITALS: BP 117/57; PULSE 97; RESP 20; TEMP 98; O2SAT 100
[2017-06-14] MEDS: SODIUM CHLOR 0.9% 1000 ML INJ 1,000 ML IV SCH ×2 (06:05→14:12)
[2017-06-14 07:27] VITALS: O2SAT 99
[2017-06-14 08:01] VITALS: BP 129/66; PULSE 108; RESP 18; TEMP 97.4; O2SAT 97
--- NOTE | 2017-06-14 08:15 | HHI.PR ---
Subjective Remarks Follow up for asthma exacerbation. The patient reports feeling slightly better today however still with nonproductive cough, wheezing, and shortness of breath. She is tearful and anxious which she believes is worse with the steroids and nebs. Denies any chest pain. Denies any fevers/chills. She does not feel ready for discharge. Objective Vitals Vital Signs Date Time Temp Pulse Resp B/P (MAP) Pulse Ox O2 Delivery O2 Flow Rate FiO2 06/14/17 08:01 97.4 108 18 129/66 (87) 97 06/14/17 07:27 99 21 06/14/17 05:01 98.0 97 20 117/57 (77) 100 06/14/17 00:00 97.5 98 20 112/56 (74) 99 06/13/17 20:27 98.8 88 18 133/69 (90) 99 06/13/17 16:55 106 22 123/69 (87) 96 Room Air 06/13/17 14:01 97.6 100 24 140/65 (90) 96 Result Diagram: 06/13/17 1435 06/13/17 1511 Imaging Last Impressions Chest X-Ray 06/13/17 1424 Signed Impressions: Service Date/Time: Tuesday, June 13, 2017 14:28 - CONCLUSION: No acute disease. Isrrael Kumari MD FACR Objective Remarks GENERAL: Well-nourished, well-developed patient in [facility]. SKIN: Warm and dry. No rash. HEENT: Normocephalic. Atraumatic. Pupils equal and round. Mucous membranes pink and moist. NECK: Supple. Trachea midline. CARDIOVASCULAR: Regular rate and rhythm. S1, S2 noted. No murmur appreciated. RESPIRATORY: No accessory muscle use. Diffuse expiratory wheezing. Breath sounds equal bilaterally. GASTROINTESTINAL: Abdomen soft, non-tender, nondistended. Normoactive bowel sounds x4. MUSCULOSKELETAL: No obvious deformities. Extremities without clubbing, cyanosis , or edema. NEUROLOGICAL: Awake and alert. No obvious cranial nerve deficits. Motor grossly within normal limits. Normal speech. PSYCHIATRIC: Tearful, anxious mood; insight and judgment normal. Medications and IVs Current Medications Medications (Trade) Dose Ordered Sig/Mary Alice Route Start Time Stop Time Status Last Admin Sodium Chloride 1,000 ml @ 100 mls/hr Q10H IV 06/13/17 19:00 06/14/17 06:05 (NS Flush) 2 ml UNSCH PRN IV FLUSH 06/13/17 17:45 (NS Flush) 2 ml BID IV FLUSH 06/13/17 21:00 06/14/17 08:53 (Tylenol) 650 mg Q4H PRN PO 06/13/17 17:45 (Zofran Inj) 4 mg Q6H PRN IVP 06/13/17 17:45 (Lovenox Inj) 40 mg Q24H SQ 06/13/17 20:00 06/13/17 19:48 (Narcan Inj) 0.4 mg UNSCH PRN IV PUSH 06/13/17 17:45 (Senokot) 17.2 mg Q12H PRN PO 06/13/17 17:45 (Dulcolax Supp) 10 mg DAILY PRN RECTAL 06/13/17 17:45 (Lactulose Liq) 30 ml DAILY PRN PO 06/13/17 17:45 (Duoneb Neb) 1 ampule Q4HR NEB NEB 06/13/17 20:00 06/14/17 07:26 (Mucinex Er) 600 mg BID PO 06/13/17 21:00 06/14/17 08:55 (Toradol) 10 mg Q6H PRN PO 06/13/17 18:15 06/18/17 18:14 06/14/17 08:55 (Ativan) 0.5 mg Q6H PRN PO 06/13/17 18:15 06/14/17 08:56 A/P Assessment and Plan 31-year-old female with history of asthma presents with shortness of breath and cough Acute Asthma Exacerbation: CXR images reviewed, no acute findings. Afebrile, no leukocytosis. +significant wheezing on exam. -S/p IV Solumedrol 125mg x1 and duonebs in the ER with minimal relief -Will continue with IV Solumedrol 40mg q8h -Continue duonebs q4h scheduled -Continue mucinex bid and tessalon tid -Monitor for improvement Marijuana Use: -counseled on cessation, especially with asthma Anxiety disorder: acute, exacerbated by steroids/nebs -Ativan as needed for anxiety -Needs outpatient f/up with PCP or psychiatry Chronic Low Back Pain: chronic -Continue on Toradol as needed DVT prophylaxis with Lovenox Discharge Planning Pending further clinical improvement. Not yet ready for discharge. Possibly later this afternoon or tomorrow. 1600hrs: Jacqui POWELL informed me patient is signing out AGAINST MEDICAL ADVICE. She does not want to wait for proper discharge. Apparently patient is yelling on the unit and made comments to the nurse about wanting pain medications. Discharge patient AGAINST MEDICAL ADVICE Condition on discharge: Improved Regular Diet as tolerated Ad Karly activity Rx written: Follow-up with primary care physician Aracely Nuñez PA-C Jun 14, 2017 8:15 am
[2017-06-14] MEDS: SODIUM CHLORIDE 0.9% FLUSH 10 ML FLUSH IV FLUSH SCH (08:53)
[2017-06-14] MEDS: guaiFENesin E.R. 600 MG TAB PO SCH (08:55)
[2017-06-14] MEDS: KETOROLAC TROMETHAMINE 10 MG TAB PO PRN (08:55)
[2017-06-14] MEDS: LORazepam 0.5 MG TAB PO PRN ×2 (08:56→15:37)
[2017-06-14] MEDS ORDERED: methylPREDNISolone SOD SUCC 40 MG/1 ML VIAL IV PUSH ONE (09:00)
[2017-06-14] MEDS ORDERED: BENZONATATE 100 MG CAP PO ONE (10:00)
[2017-06-14 11:48] VITALS: BP 124/70; PULSE 107; RESP 18; TEMP 97.5; O2SAT 97
[2017-06-14] MEDS ORDERED: BENZONATATE 100 MG CAP PO SCH (13:00)
--- NOTE | 2017-06-14 16:01 | PD.AMA ---
Against Medical Advice Note Diagnosis: (1) Asthma exacerbation Discharge Disposition: Against Medical Advice Pt Condition on Discharge: Stable AMA Statement Patient Opal Stephen has decided to leave the hospital against medical advice. This patient has the capacity to refuse care and understands the risks of leaving, including permanent disability and/or , and has had an opportunity to ask questions about her condition. The patient has been informed that she may return for care at any time, and follow up has been arranged/ advised. Aracely Nuñez PA-C Jun 14, 2017 4:01 pm
[2017-06-14] MEDS ORDERED: methylPREDNISolone SOD SUCC 40 MG/1 ML VIAL IV PUSH SCH (17:00)
== END 2017-06-14 17:15 | disposition home or self-care (01) ==
LOC: NEPD 13:59 → NEDA 17:28 → NEPFCDU 19:08
PROVIDERS: ADMIT Hospitalist; ATTEND Hospitalist
DX: J45.41 Moderate persistent asthma with (acute) exacerbation (principal); F12.10 Cannabis abuse, uncomplicated; F41.9 Anxiety disorder, unspecified; M54.5 Low back pain; G89.29 Other chronic pain
CPT/HCPCS: 71045; 80053; 81001; 85025; 94150; 94640; 94664; 96361; 96372; 96374; 96375; 96376; 99285; G0378; J1650; J1885; J2060; J2920; J2930; J7030; J7611

== ENCOUNTER 2017-07-03 14:49 | Emergency (ER) | payer SELFPAY ==
[~2017-07-03] VITALS: Ht 170.2 cm; Wt 75.0 kg
[2017-07-03 14:59] VITALS: BP 142/71; PULSE 84; RESP 26; TEMP 97.8; O2SAT 98
[2017-07-03] MEDS ORDERED: ALBUAER3 INH (16:17)
[2017-07-03] MEDS ORDERED: PRED20 PO (16:17)
[2017-07-03 16:18] VITALS: PULSE 104; O2SAT 98
[2017-07-03] MEDS ORDERED: predniSONE 20 MG TAB PO ONE (16:45)
--- NOTE | 2017-07-03 16:46 | PD ---
HPI Chief Complaint: Respiratory Symptoms Time Seen by Provider: 16:32 Travel History International Travel<30 days: No Contact w/Intl Traveler<30days: No Traveled to known affect area: No History of Present Illness HPI The patient was seen and examined in the presence of the nurse. Patient complains of shortness of breath. She presents dyspneic and actively wheezing. Symptoms moderately severe. No alleviating factors. Duration 3 days. He does have a chronic dry cough. No fever or chest pain. He supposed to be taking prednisone but has not taken it for a few days. No exacerbating factors. She does not smoke, quit 1 year ago [facility] Past Medical History Asthma: Yes Anxiety: Yes Diminished Hearing: No ?: Not Past Surgical History Cholecystectomy: Yes Social History Alcohol Use: No Tobacco Use: No Substance Use: Yes (marijuana) Allergies-Medications (Allergen,Severity, Reaction): Coded Allergies: No Known Allergies (Unverified Allergy, Unknown, 06/13/17) Reported Meds & Prescriptions Reported Meds & Active Scripts Active Reported Prednisone 20 Mg Tab 20 Mg PO DAILY Proair Hfa 8.5 GM Inh (Albuterol Sulfate) 90 Mcg/Act Aer 2 Puff INH Q4-6H PRN 108 mcg/actuation Review of Systems General / Constitutional: No: Fever Eyes: No: Visual changes HENT: No: Headaches Cardiovascular: No: Chest Pain or Discomfort Respiratory: Positive: Cough, Shortness of Breath, Wheezing Gastrointestinal: No: Abdominal Pain Genitourinary: No: Dysuria Musculoskeletal: No: Pain Skin: No Rash Neurologic: No: Weakness Psychiatric: No: Depression Endocrine: No: Polydipsia Hematologic/Lymphatic: No: Easy Bruising Physical Exam Narrative GENERAL: Well-nourished, well-developed patient with shortness of breath . SKIN: Focused skin assessment reveals no rash and nodules. Skin is Warm and dry. HEAD: Atraumatic. Normocephalic. EYES: Pupils equal and round. No scleral icterus. No injection or drainage. ENT: No nasal bleeding or discharge. Mucous membranes pink and moist. NECK: Trachea midline. No JVD. CARDIOVASCULAR: Regular rate and rhythm. No murmur appreciated. RESPIRATORY: Some accessory muscle use. Diffuse expiratory wheezing. Breath sounds equal bilaterally. GASTROINTESTINAL: Abdomen soft, non-tender, nondistended. Hepatic and splenic margins not palpable. MUSCULOSKELETAL: No obvious deformities. No clubbing. No cyanosis. No edema. NEUROLOGICAL: Awake and alert. No obvious cranial nerve deficits. Motor grossly within normal limits. Normal speech. PSYCHIATRIC: Appropriate mood and affect; insight and judgment normal. Data Data Last Documented VS Vital Signs Date Time Temp Pulse Resp B/P (MAP) Pulse Ox O2 Delivery O2 Flow Rate FiO2 07/03/17 16:50 98 07/03/17 16:18 104 07/03/17 14:59 97.8 26 142/71 (94) Orders Orders Oximetry (07/03/17 16:38) Prednisone (Deltasone) (07/03/17 16:45) Albuterol-Ipratropium Neb (Duoneb Neb) (07/03/17 16:45) Oxycodone-Acetamin 5-325 Mg (Percocet (07/03/17 17:15) Albuterol-Ipratropium Neb (Duoneb Neb) (07/03/17 18:30) Ketorolac Inj (Toradol Inj) (07/03/17 18:30) MDM Medical Decision Making Medical Screen Exam Complete: Yes Emergency Medical Condition: Yes Medical Record Reviewed: Yes Differential Diagnosis Asthma exacerbation, pneumonia, dyspnea, bronchitis Narrative Course I have reviewed the patient's electronic medical record. Patient was hospitalized for 1 night about 3 weeks ago for asthma I gave her she is 3 nebulizer treatments and a large dose of prednisone We will reassess after the above treatments On reassessment she is much improved. She still has a little residual wheeze. I gave her a fourth nebulizer treatment For her back pain I gave her 2 pain pills and a Toradol injection. I think she strained her low back coughing. There has been no injury or neurologic deficit After all the above she is much improved. She has prednisone to take at home. The patient was advised to follow up with their physician and return if they worsen. Diagnosis Primary Impression: Asthma attack Qualified Codes: J45.31 - Mild persistent asthma with (acute) exacerbation Additional Instructions: The patient was advised to follow up with their physician and return if they worsen. Med/Other Pt SpecificInfo: Other Disposition: 01 DISCHARGE HOME Condition: Stable Edmund Duffy MD Jul 03, 2017 16:46
[2017-07-03 16:50] VITALS: O2SAT 98
[2017-07-03] MEDS: RESP: ALBUTEROL 2.5 MG/IPRATROPIUM 0.5 MG NEB (SCH) INH ×2 (17:02→17:03)
[2017-07-03] MEDS ORDERED: oxyCODONE/ACETAMINOPHEN 5 MG/325 MG TAB PO ONE (17:15)
[2017-07-03] MEDS ORDERED: KETOROLAC TROMETHAMINE 60 MG/2 ML (IM) VIAL IM ONE (18:30)
[2017-07-03] MEDS ORDERED: RESP: ALBUTEROL 2.5 MG/IPRATROPIUM 0.5 MG NEB (SCH) NEB ONE (18:30)
== END 2017-07-03 18:55 | disposition home or self-care (01) ==
LOC: NEPC 14:49
DX: J45.31 Mild persistent asthma with (acute) exacerbation (principal); F12.90 Cannabis use, unspecified, uncomplicated
CPT/HCPCS: 94640; 94664; 96372; 99283; J1885; J7512

== ENCOUNTER 2017-07-06 14:31 | Observation (INO) | payer SELFPAY ==
[~2017-07-06] VITALS: Ht 170.2 cm; Wt 74.0 kg
[~2017-07-06 14:31] MED LIST changes: +ALBUAER3 INH; -AMOX500C PO; -CLIN150C14 PO; -IBUP1TAB7 PO; -OMEP20TA93 PO; -PERI0.126 SWISH-SPIT; +PRED20 PO; -ZOFR4TAB3 SL
[2017-07-06 14:40] VITALS: BP 103/70; PULSE 99; RESP 30; TEMP 98.4; O2SAT 97
[2017-07-06] MEDS ORDERED: methylPREDNISolone SOD SUCC 125 MG/2 ML VIAL IV PUSH ONE (16:45)
[2017-07-06] MEDS: RESP: ALBUTEROL 2.5 MG/IPRATROPIUM 0.5 MG NEB (SCH) INH ×2 (16:55→16:56)
--- NOTE | 2017-07-06 17:20 | RADRPT ---
EXAM DATE/TIME: 07/06/2017 16:54 [place] COMPARISON: CHEST SINGLE AP, June 13, 2017, 14:28. INDICATIONS : Chest pain, cough, shortness of breath, and congestion for two days. MEDICAL HISTORY : Asthma. SURGICAL HISTORY : None. ENCOUNTER: Initial ACUITY: 2 days PAIN SCORE: 0/10 LOCATION: Bilateral chest FINDINGS: A single view of the chest demonstrates the lungs to be symmetrically aerated without evidence of mas s, infiltrate or effusion. The cardiomediastinal contours are unremarkable. Osseous structures are intact. CONCLUSION: No acute disease. Erwin Norman MD on July 06, 2017 at 17:17 Board Certified Radiologist. This report was verified electronically.
[2017-07-06] MEDS: MAGNESIUM SULFATE 1 GM PREMIX 100 ML IV SCH ×2 (17:45→18:36)
[2017-07-06] MEDS ORDERED: KETOROLAC TROMETHAMINE 30 MG/ML (IVP) VIAL IV PUSH ONE (17:45)
--- NOTE | 2017-07-06 17:46 | PD ---
HPI Chief Complaint: Respiratory Distress Time Seen by Provider: 16:43 Travel History International Travel<30 days: No Contact w/Intl Traveler<30days: No Traveled to known affect area: No History of Present Illness HPI 31-year-old female, with history of asthma, who presents to the emergency department with complaint of chest tightness, shortness of breath, wheezing that has worsened since 9 AM this morning. Asthma exacerbation started 2 days ago. She was seen here July 03 for asthma exacerbation. And she says she was admitted about 2 weeks ago for asthma exacerbation also. Reports cough. Denies fever, vomiting. Denies recent illness. Is also complaining of left lower back pain 3 days. Denies injury. Denies medical paresis, incontinence, saddle anesthesias. Denies IV drug use or cancer. Denies urinary symptoms. Tried using her pro-air inhaler 5 times a day with minimal relief. Has not taken any medication for her back pain. Has been taking steroids 20 mg daily for her asthma. Symptoms are moderate in severity. Denies tobacco use. Reports secondhand smoke in her home. No known allergies. No primary care provider. History of asthma. Has no other medical complaints. No other modifying factors or associated signs and symptoms. PFSH Past Medical History Asthma: Yes Anxiety: Yes Diminished Hearing: No Respiratory: Yes (ASTHMA) ?: Not Past Surgical History Cholecystectomy: Yes Social History Alcohol Use: No Tobacco Use: No Substance Use: Yes (marijuana) Allergies-Medications (Allergen,Severity, Reaction): Coded Allergies: No Known Allergies (Unverified Allergy, Unknown, 07/06/17) Reported Meds & Prescriptions Reported Meds & Active Scripts Active Reported Prednisone 20 Mg Tab 20 Mg PO DAILY Proair Hfa 8.5 GM Inh (Albuterol Sulfate) 90 Mcg/Act Aer 2 Puff INH Q4-6H PRN 108 mcg/actuation Review of Systems Except as stated in HPI: all other systems reviewed are Neg Physical Exam Narrative GENERAL: Well-nourished, well-developed female patient; afebrile, nontoxic-appearing; anxious appearing SKIN: Warm and dry. HEAD: Atraumatic. Normocephalic. EYES: Pupils equal and round. No scleral icterus. No injection or drainage. ENT: Mucosa pink and moist. No erythema or exudates. No uvular edema. No uvular , palatal, or tonsillar deviation. Airway patent. Nares without nasal blood, purulent drainage or septal hematoma. EARS: Bilateral pinnae and external canals appear within normal limits. Bilateral tympanic membranes without erythema, dullness or perforation. NECK: Trachea midline. No lymphadenopathy. CARDIOVASCULAR: Tachycardic rate and rhythm in 110-120. No murmur appreciated. RESPIRATORY: Tachypneic 20-30 breaths per minute. No accessory muscle use. Lungs with Wheezing throughout to auscultation. Breath sounds equal bilaterally. No retractions. No Audible wheezing noted. GASTROINTESTINAL: Rounded. MUSCULOSKELETAL: Bilateral lower extremities supple and non-tense with 2+ pedal pulses and sensory intact; with full range of motion and 5/5 strength. Active dorsiflexion and extension of bilateral feet. Ambulatory in room with normal gait. Sitting up in bed at 90. No obvious deformities. No clubbing. No cyanosis. No edema. BACK: No midline point tenderness on palpation of the lumbar spine. Tenderness on palpation of left lumbar iliosacral area. No obvious deformities. NEUROLOGICAL: Awake and alert. Oriented 3. No obvious cranial nerve deficits. Motor grossly within normal limits. Normal speech. Moves all extremities. 5/5 strength to all extremities. PSYCHIATRIC: Appropriate mood and affect; insight and judgment normal. Data Data Last Documented VS Vital Signs Date Time Temp Pulse Resp B/P (MAP) Pulse Ox O2 Delivery O2 Flow Rate FiO2 07/06/17 14:40 98.4 99 30 103/70 (81) 97 Orders Orders Iv Access Insert/Monitor (07/06/17 16:44) Methylprednisolone So Succ Inj (Solumedr (07/06/17 16:45) Albuterol-Ipratropium Neb (Duoneb Neb) (07/06/17 16:45) Chest, Single Ap (07/06/17 16:44) Ketorolac Inj (Toradol Inj) (07/06/17 17:45) Hydroxyzine Pamoate (Vistaril) (07/06/17 17:45) Magnesium Sulfate 1 Gm Premix (Magnesium (07/06/17 17:45) Complete Blood Count With Diff (07/06/17 19:15) Comprehensive Metabolic Panel (07/06/17 19:15) Ecg Monitoring (07/06/17 19:15) Oximetry (07/06/17 19:15) Oxygen Administration (07/06/17 19:15) Sodium Chloride 0.9% Flush (Ns Flush) (07/06/17 19:15) Albuterol Neb (Albuterol Neb) (07/06/17 19:15) Acetaminophen (Tylenol) (07/06/17 20:45) Cyclobenzaprine (Flexeril) (07/06/17 20:45) Admit Order (Ed Use Only) (07/06/17 ) Labs Laboratory Tests Test 07/06/17 19:30 White Blood Count 12.9 TH/MM3 Red Blood Count 4.37 MIL/MM3 Hemoglobin 13.8 GM/DL Hematocrit 39.0 % Mean Corpuscular Volume 89.2 FL Mean Corpuscular Hemoglobin 31.5 PG Mean Corpuscular Hemoglobin Concent 35.3 % Red Cell Distribution Width 12.3 % Platelet Count 239 TH/MM3 Mean Platelet Volume 9.7 FL Neutrophils (%) (Auto) 95.7 % Lymphocytes (%) (Auto) 2.7 % Monocytes (%) (Auto) 1.3 % Eosinophils (%) (Auto) 0.1 % Basophils (%) (Auto) 0.2 % Neutrophils # (Auto) 12.3 TH/MM3 Lymphocytes # (Auto) 0.3 TH/MM3 Monocytes # (Auto) 0.2 TH/MM3 Eosinophils # (Auto) 0.0 TH/MM3 Basophils # (Auto) 0.0 TH/MM3 CBC Comment DIFF FINAL Differential Comment Blood Urea Nitrogen 9 MG/DL Creatinine 0.92 MG/DL Random Glucose 174 MG/DL Total Protein 7.8 GM/DL Albumin 4.1 GM/DL Calcium Level 9.0 MG/DL Alkaline Phosphatase 81 U/L Aspartate Amino Transf (AST/SGOT) 38 U/L Alanine Aminotransferase (ALT/SGPT) 50 U/L Total Bilirubin 1.7 MG/DL Sodium Level 138 MEQ/L Potassium Level 3.8 MEQ/L Chloride Level 107 MEQ/L Carbon Dioxide Level 19.3 MEQ/L Anion Gap 12 MEQ/L Estimat Glomerular Filtration Rate 71 ML/MIN [facility] Medical Decision Making Medical Screen Exam Complete: Yes Emergency Medical Condition: Yes Medical Record Reviewed: Yes Differential Diagnosis Asthma exacerbation, anxiety, left-sided low back pain Narrative Course 31-year-old female with history of asthma with asthma exacerbation and left- sided low back pain. Denies injury. Denies encopresis, incontinence, saddle anesthesias. Denies IV drug use or cancer. Patient is tachypneic and tachycardic. She appears anxious. Lungs with wheezing throughout. No audible wheezing. DuoNeb 3, Solu-Medrol, Toradol ordered. 1739: Patient continues to be anxious appearing, tachycardic, tachypneic and with diffuse wheezing throughout on auscultation of the lung hunt. Dr. Trevino, my attending physician, evaluated the patient and recommended Vistaril and 2 g of magnesium. Orders entered. 1899: Dr. Trevino assumed patient care at this time. See her note for final patient disposition. Diagnosis Primary Impression: Asthma exacerbation Qualified Codes: J45.901 - Unspecified asthma with (acute) exacerbation Additional Impression: Acute left-sided low back pain Qualified Codes: M54.5 - Low back pain Glo Fournier Jul 06, 2017 17:46
--- NOTE | 2017-07-06 18:20 | PD ---
Physical Exam Narrative I, Dr. Trevino, have reviewed the advance practice practitioner's documentation and am in agreement, met with the patient face to face, made the diagnosis, and the medical decision making was done by me. *My assessment and Findings: Patient is a 31 year old female who comes in complaining of SOB. She has history of asthma. She says she lives with smokers. Exam shows diffuse wheezing and coarse breath sounds. She is speaking in full sentences. Data Data Last Documented VS Vital Signs Date Time Temp Pulse Resp B/P (MAP) Pulse Ox O2 Delivery O2 Flow Rate FiO2 07/06/17 14:40 98.4 99 30 103/70 (81) 97 Orders Orders Iv Access Insert/Monitor (07/06/17 16:44) Methylprednisolone So Succ Inj (Solumedr (07/06/17 16:45) Albuterol-Ipratropium Neb (Duoneb Neb) (07/06/17 16:45) Chest, Single Ap (07/06/17 16:44) Ketorolac Inj (Toradol Inj) (07/06/17 17:45) Hydroxyzine Pamoate (Vistaril) (07/06/17 17:45) Magnesium Sulfate 1 Gm Premix (Magnesium (07/06/17 17:45) Complete Blood Count With Diff (07/06/17 19:15) Comprehensive Metabolic Panel (07/06/17 19:15) Ecg Monitoring (07/06/17 19:15) Oximetry (07/06/17 19:15) Oxygen Administration (07/06/17 19:15) Sodium Chloride 0.9% Flush (Ns Flush) (07/06/17 19:15) Albuterol Neb (Albuterol Neb) (07/06/17 19:15) Acetaminophen (Tylenol) (07/06/17 20:45) Cyclobenzaprine (Flexeril) (07/06/17 20:45) Labs Laboratory Tests Test 07/06/17 19:30 White Blood Count 12.9 TH/MM3 Red Blood Count 4.37 MIL/MM3 Hemoglobin 13.8 GM/DL Hematocrit 39.0 % Mean Corpuscular Volume 89.2 FL Mean Corpuscular Hemoglobin 31.5 PG Mean Corpuscular Hemoglobin Concent 35.3 % Red Cell Distribution Width 12.3 % Platelet Count 239 TH/MM3 Mean Platelet Volume 9.7 FL Neutrophils (%) (Auto) 95.7 % Lymphocytes (%) (Auto) 2.7 % Monocytes (%) (Auto) 1.3 % Eosinophils (%) (Auto) 0.1 % Basophils (%) (Auto) 0.2 % Neutrophils # (Auto) 12.3 TH/MM3 Lymphocytes # (Auto) 0.3 TH/MM3 Monocytes # (Auto) 0.2 TH/MM3 Eosinophils # (Auto) 0.0 TH/MM3 Basophils # (Auto) 0.0 TH/MM3 CBC Comment DIFF FINAL Differential Comment Blood Urea Nitrogen 9 MG/DL Creatinine 0.92 MG/DL Random Glucose 174 MG/DL Total Protein 7.8 GM/DL Albumin 4.1 GM/DL Calcium Level 9.0 MG/DL Alkaline Phosphatase 81 U/L Aspartate Amino Transf (AST/SGOT) 38 U/L Alanine Aminotransferase (ALT/SGPT) 50 U/L Total Bilirubin 1.7 MG/DL Sodium Level 138 MEQ/L Potassium Level 3.8 MEQ/L Chloride Level 107 MEQ/L Carbon Dioxide Level 19.3 MEQ/L Anion Gap 12 MEQ/L Estimat Glomerular Filtration Rate 71 ML/MIN MDM Supervised Visit with NAM: Yes Narrative Course Patient given 3 duonebs, solumedrol and Magnesium. She is complaining of back pain. Given Toradol, Tylenol and Flexeril. She continued to wheeze, given 2 more albuterol treatments. She says she is still feeling very short of breath. She will be placed in observation for further management. Diagnosis Primary Impression: Asthma exacerbation Qualified Codes: J45.901 - Unspecified asthma with (acute) exacerbation Admitting Information Admitting Physician Requests: Observation Tootie Trevino MD Jul 06, 2017 18:20
[2017-07-06] MEDS ORDERED: SODIUM CHLORIDE 0.9% FLUSH 10 ML FLUSH IVF PRN (19:15)
[2017-07-06] MEDS: RESP: ALBUTEROL 2.5 MG/3 ML NEB (SCH) INH ×2 (19:35→19:36)
[2017-07-06 20:02] LABS: AUTOMATED NEUTROPHIL # 12.3 TH/MM3 (1.8-7.7); BASOPHIL % 0.2 % (0.0-2.0); EOSINOPHIL % 0.1 % (0.0-4.0); HEMOGLOBIN 13.8 GM/DL (11.6-15.3); LYMPH % 2.7 % (9.0-44.0); LYMPHOCYTE # 0.3 TH/MM3 (1.0-4.8); MEAN CELL VOLUME 89.2 FL (80.0-100.0); MEAN CORPUSCULAR HEMOGLOBIN 31.5 PG (27.0-34.0); MEAN CORPUSCULAR HGB CONC 35.3 % (32.0-36.0); MEAN PLATELET VOLUME 9.7 FL (7.0-11.0); MONO % 1.3 % (0.0-8.0); MONOCYTE # 0.2 TH/MM3 (0-0.9); NEUT % 95.7 % (16.0-70.0); PLATELET COUNT 239 TH/MM3 (150-450); RED BLOOD COUNT 4.37 MIL/MM3 (4.00-5.30); RED CELL DISTRIBUTION WIDTH 12.3 % (11.6-17.2); WHITE BLOOD COUNT 12.9 TH/MM3 (4.0-11.0)
[2017-07-06 20:27] LABS: ALBUMIN 4.1 GM/DL (3.4-5.0); AST (GOT) 38 U/L (15-37); BICARBONATE 19.3 MEQ/L (21.0-32.0); BLOOD UREA NITROGEN 9 MG/DL (7-18); CHLORIDE 107 MEQ/L (98-107); CREATININE 0.92 MG/DL (0.50-1.00); GLOMERULAR FILTRATION RATE 71 ML/MIN (>89); GLUCOSE,RANDOM 174 MG/DL (74-106); SODIUM (NA) 138 MEQ/L (136-145)
[2017-07-06 20:30] LABS: ALKALINE PHOSPHATASE 81 U/L (45-117); ALT (GPT) 50 U/L (10-53); TOTAL BILIRUBIN ADULT 1.7 MG/DL (0.2-1.0); TOTAL PROTEIN 7.8 GM/DL (6.4-8.2)
[2017-07-06] MEDS ORDERED: ACETAMINOPHEN 325 MG TAB PO ONE (20:45)
[2017-07-06] MEDS ORDERED: CYCLOBENZAPRINE HCL 10 MG TAB PO ONE (20:45)
--- NOTE | 2017-07-06 20:59 | HHI.HP ---
[facility] No Primary Care Physician Admission Diagnosis Asthma exacerbation Diagnoses: (1) Asthma exacerbation Diagnosis: Principal (2) Dehydration Diagnosis: Principal Travel History International Travel<30 Days: No Contact w/Intl Traveler <30 Da: No Traveled to Known Affected Are: No History of Present Illness This is a 31-year-old female with a PMH of Anxiety and Asthma who was sent to the ER with complaints of SOB and wheezing since this morning. Seen in ER on 07/03/17 for similar symptoms, s/p Steroids/DuoNeb w/ improvement and discharged home. Today, w/ recurrent symptoms. Denies fever, chills, cough or sick contacts. On arrival, BP 103/70, HR 99, O2 sat 97% on RA, Afebrile. WBC 12.9. Chemistry unremarkable. GFR 71. CXR with no acute findings. On exam, patient with expiratory wheezing despite multiple DuoNeb treatments and Solu- Medrol. Review of Systems Except as stated in HPI: all other systems reviewed are Neg ROS: 14 point review of systems otherwise negative. Past Family Social History Past Medical History PMH: Anxiety and Asthma Past Surgical History PAST SURGICAL HISTORY: Cholecystectomy Allergies: Coded Allergies: No Known Allergies (Unverified Allergy, Unknown, 07/06/17) Family History PAST FAMILY HISTORY: Reviewed. No h/o DM or CAD Social History PAST SOCIAL HISTORY: Denies alcohol or tobacco. Positive for Marijuana. Physical Exam Vital Signs Vital Signs Date Time Temp Pulse Resp B/P (MAP) Pulse Ox O2 Delivery O2 Flow Rate FiO2 07/06/17 14:40 98.4 99 30 103/70 (81) 97 Physical Exam PE: GENERAL: An female in no acute distress. HEENT: PERRLA, EOMI. No scleral icterus or conjunctival pallor. No lid lag or facial droop. CARDIOVASCULAR: Regular rate and rhythm. No obvious murmurs to auscultation. No chest tenderness to palpation. RESPIRATORY: No obvious rhonchi, expiratory wheezing. Clear to auscultation. Breath sounds equal bilaterally. GASTROINTESTINAL: Abdomen soft, non-tender, nondistended. BS normal. MUSCULOSKELETAL: Extremities without clubbing, cyanosis, or edema. No obvious deformities. NEUROLOGICAL: Awake, alert and oriented x4. No focal neurologic deficits. Moving both upper and lower extremities spontaneously. Laboratory Laboratory Tests Test 07/06/17 19:30 White Blood Count 12.9 Red Blood Count 4.37 Hemoglobin 13.8 Hematocrit 39.0 Mean Corpuscular Volume 89.2 Mean Corpuscular Hemoglobin 31.5 Mean Corpuscular Hemoglobin Concent 35.3 Red Cell Distribution Width 12.3 Platelet Count 239 Mean Platelet Volume 9.7 Neutrophils (%) (Auto) 95.7 Lymphocytes (%) (Auto) 2.7 Monocytes (%) (Auto) 1.3 Eosinophils (%) (Auto) 0.1 Basophils (%) (Auto) 0.2 Neutrophils # (Auto) 12.3 Lymphocytes # (Auto) 0.3 Monocytes # (Auto) 0.2 Eosinophils # (Auto) 0.0 Basophils # (Auto) 0.0 CBC Comment DIFF FINAL Differential Comment Blood Urea Nitrogen 9 Creatinine 0.92 Random Glucose 174 Total Protein 7.8 Albumin 4.1 Calcium Level 9.0 Alkaline Phosphatase 81 Aspartate Amino Transf (AST/SGOT) 38 Alanine Aminotransferase (ALT/SGPT) 50 Total Bilirubin 1.7 Sodium Level 138 Potassium Level 3.8 Chloride Level 107 Carbon Dioxide Level 19.3 Anion Gap 12 Estimat Glomerular Filtration Rate 71 Result Diagram: 07/06/17192907/06/171929 Caprini VTE Risk Assessment Caprini VTE Risk Assessment: No/Low Risk (score <= 1) Caprini Risk Assessment Model Point Value = 1 Point Value = 2 Point Value = 3 Point Value = 5 Age 41-60 Minor surgery BMI > 25 kg/m2 Swollen legs Varicose veins or History of unexplained or recurrent spontaneous Oral contraceptives or hormone replacement Sepsis (< 1 month) Serious lung disease, including pneumonia (< 1 month) Abnormal pulmonary function Acute myocardial infarction Congestive heart failure (< 1 month) History of inflammatory bowel disease Medical patient at bed rest Age 61-74 Arthroscopic surgery Major open surgery (> 45 min) Laparoscopic surgery (> 45 min) Malignancy Confined to bed (> 72 hours) Immobilizing plaster cast Central venous access Age >= 75 History of VTE Family history of VTE Factor V Leiden Prothrombin [id number] Lupus anticoagulant Anticardiolipin antibodies Elevated serum homocysteine Heparin-induced thrombocytopenia Other congenital or acquired thrombophilia Stroke (< 1 month) Elective arthroplasty Hip, pelvis, or leg fracture Acute spinal cord injury (< 1 month) Prophylaxis Regimen Total Risk Factor Score Risk Level Prophylaxis Regimen 0-1 Low Early ambulation 2 Moderate Order ONE of the following: *Sequential Compression Device (SCD) *Heparin 5000 units SQ BID 3-4 Higher Order ONE of the following medications: *Heparin 5000 units SQ TID *Enoxaparin/Lovenox 40 mg SQ daily (WT < 150 kg, CrCl > 30 mL/min) *Enoxaparin/Lovenox 30 mg SQ daily (WT < 150 kg, CrCl > 10-29 mL/min) *Enoxaparin/Lovenox 30 mg SQ BID (WT < 150 kg, CrCl > 30 mL/min) AND/OR *Sequential Compression Device (SCD) 5 or more Highest Order ONE of the following medications: *Heparin 5000 units SQ TID (Preferred with Epidurals) *Enoxaparin/Lovenox 40 mg SQ daily (WT < 150 kg, CrCl > 30 mL/min) *Enoxaparin/Lovenox 30 mg SQ daily (WT < 150 kg, CrCl > 10-29 mL/min) *Enoxaparin/Lovenox 30 mg SQ BID (WT < 150 kg, CrCl > 30 mL/min) AND *Sequential Compression Device (SCD) Assessment and Plan Problem List: (1) Asthma exacerbation ICD Code: J45.901 - Unspecified asthma with (acute) exacerbation Status: Acute (2) Dehydration ICD Code: E86.0 - Dehydration Assessment and Plan A/P: 1. Asthma: Recurrent Exacerbation, recent eval on 07/03/17 for similar, now w/ ongoing SOB/wheezing, s/p Solu-Medrol and DuoNeb in ER w/ persistent symptoms. Admit for Observation, Solu-Medrol q6h, Albuterol Neb, Symbicort, Mucinex. CXR w/ no acute findings, images reviewed by me. 2. Dehydration: GFR 71, likely from increased respiratory losses. IVF for hydration, repeat labs in a.m. 3. DVT Prophylaxis: SCD/teds. 4. transition social worker DC planning as needed. 5. Case discussed at length with ER physician labs/records/imaging reviewed by me. Problem Qualifiers (1) Asthma exacerbation: Qualified Codes: J45.901 - Unspecified asthma with (acute) exacerbation Paola Rodriguez MD Jul 06, 2017 20:59
[2017-07-06] MEDS ORDERED: SODIUM CHLORIDE 0.9% FLUSH 10 ML FLUSH IV FLUSH PRN (21:00)
[2017-07-06] MEDS ORDERED: BISACODYL 10 MG SUPP RECTAL PRN (21:00)
[2017-07-06] MEDS ORDERED: LACTULOSE SYRUP 20 GM/30 ML CUP PO PRN (21:00)
[2017-07-06] MEDS ORDERED: ONDANSETRON HCL 4 MG/2 ML VIAL IVP PRN (21:00)
[2017-07-06] MEDS ORDERED: ACETAMINOPHEN 325 MG TAB PO PRN (21:00)
[2017-07-06] MEDS: DOCUSATE SODIUM 50 MG/SENNA 8.6 MG TAB PO SCH (21:00)
[2017-07-06] MEDS ORDERED: MAGNESIUM HYDROXIDE SUSP 30 ML CUP PO PRN (21:00)
[2017-07-06] MEDS ORDERED: SENNOSIDES 8.6 MG TAB PO PRN (21:00)
[2017-07-06 21:08] VITALS: BP 117/70; PULSE 117; RESP 26; O2SAT 100
--- NOTE | 2017-07-06 23:04 | HHI.PR ---
Subjective Remarks NOT SEEN Objective Vitals Vital Signs Date Time Temp Pulse Resp B/P (MAP) Pulse Ox O2 Delivery O2 Flow Rate FiO2 07/06/17 22:20 07/06/17 21:08 117 26 117/70 (86) 100 Room Air 07/06/17 21:02 100 Room Air 07/06/17 14:40 98.4 99 30 103/70 (81) 97 I/O 07/06/17 07/06/17 07/06/17 07/07/17 07/07/17 07/07/17 07:00 15:00 23:00 07:00 15:00 23:00 Intake Total 100 ml Balance 100 ml Intake IV Total 100 ml Result Diagram: 07/06/17192907/06/171929 Imaging Last Impressions Chest X-Ray 07/06/17 1644 Signed Impressions: Service Date/Time: Thursday, July 06, 2017 16:54 - CONCLUSION: No acute disease. Erwin Norman MD Objective Remarks GENERAL: An female in no acute distress. HEENT: PERRLA, EOMI. No scleral icterus or conjunctival pallor. No lid lag or facial droop. CARDIOVASCULAR: Regular rate and rhythm. No obvious murmurs to auscultation. No chest tenderness to palpation. RESPIRATORY: No obvious rhonchi, expiratory wheezing. Clear to auscultation. Breath sounds equal bilaterally. GASTROINTESTINAL: Abdomen soft, non-tender, nondistended. BS normal. MUSCULOSKELETAL: Extremities without clubbing, cyanosis, or edema. No obvious deformities. NEUROLOGICAL: Awake, alert and oriented x4. No focal neurologic deficits. Moving both upper and lower extremities spontaneously. A/P Problem List: (1) Asthma exacerbation ICD Code: J45.901 - Unspecified asthma with (acute) exacerbation Status: Acute (2) Dehydration ICD Code: E86.0 - Dehydration Assessment and Plan 1. Asthma: Recurrent Exacerbation, recent eval on 07/03/17 for similar, now w/ ongoing SOB/wheezing, s/p Solu-Medrol and DuoNeb in ER w/ persistent symptoms. Admit for Observation, Solu-Medrol q6h, Albuterol Neb, Symbicort, Mucinex. CXR w/ no acute findings, images reviewed by me. 2. Dehydration: GFR 71, likely from increased respiratory losses. IVF for hydration, repeat labs in a.m. 3. DVT Prophylaxis: SCD/teds. Problem Qualifiers (1) Asthma exacerbation: Qualified Codes: J45.901 - Unspecified asthma with (acute) exacerbation Ivan Lam MD Jul 06, 2017 23:04
[2017-07-07] MEDS: methylPREDNISolone SOD SUCC 40 MG/1 ML VIAL IV PUSH SCH ×5 (00:05→23:49)
[2017-07-07] MEDS: SODIUM CHLORIDE 0.9% FLUSH 10 ML FLUSH IV FLUSH SCH ×3 (00:06→20:11)
[2017-07-07] MEDS: SODIUM CHLOR 0.9% 1000 ML INJ 1,000 ML IV SCH ×2 (00:06→06:27)
[2017-07-07 00:12] VITALS: BP 113/58; PULSE 90; RESP 14; TEMP 98; O2SAT 97
[2017-07-07] MEDS: ACETAMINOPHEN/HYDROcodone 325 MG/5 MG TAB PO PRN ×2 (00:25→16:49)
[2017-07-07] MEDS: BUDESONIDE-FORMOTEROL 160/4.5 MCG INHALER INH SCH ×3 (03:25→20:10)
[2017-07-07 04:21] VITALS: BP 110/56; PULSE 73; RESP 16; TEMP 97.7; O2SAT 96
[2017-07-07 07:04] LABS: AUTOMATED NEUTROPHIL # 5.8 TH/MM3 (1.8-7.7); BASOPHIL % 0.1 % (0.0-2.0); HEMATOCRIT 37.3 % (35.0-46.0); HEMOGLOBIN 13.1 GM/DL (11.6-15.3); LYMPH % 5.2 % (9.0-44.0); LYMPHOCYTE # 0.3 TH/MM3 (1.0-4.8); MEAN CELL VOLUME 91.7 FL (80.0-100.0); MEAN CORPUSCULAR HEMOGLOBIN 32.1 PG (27.0-34.0); MEAN PLATELET VOLUME 9.8 FL (7.0-11.0); MONO % 1.6 % (0.0-8.0); MONOCYTE # 0.1 TH/MM3 (0-0.9); NEUT % 93.1 % (16.0-70.0); PLATELET COUNT 209 TH/MM3 (150-450); RED BLOOD COUNT 4.07 MIL/MM3 (4.00-5.30); RED CELL DISTRIBUTION WIDTH 12.6 % (11.6-17.2); WHITE BLOOD COUNT 6.2 TH/MM3 (4.0-11.0)
[2017-07-07 07:05] VITALS: BP 119/69; PULSE 94; RESP 16; TEMP 98.3; O2SAT 97
[2017-07-07 07:29] LABS: ALBUMIN 3.8 GM/DL (3.4-5.0); AST (GOT) 16 U/L (15-37); BICARBONATE 24.3 MEQ/L (21.0-32.0); BLOOD UREA NITROGEN 10 MG/DL (7-18); CALCIUM 9.1 MG/DL (8.5-10.1); CHLORIDE 108 MEQ/L (98-107); CREATININE 0.71 MG/DL (0.50-1.00); GLOMERULAR FILTRATION RATE 95 ML/MIN (>89); GLUCOSE,RANDOM 149 MG/DL (74-106); SODIUM (NA) 142 MEQ/L (136-145)
[2017-07-07 07:31] LABS: ALT (GPT) 40 U/L (10-53)
[2017-07-07 07:33] LABS: ALKALINE PHOSPHATASE 80 U/L (45-117); TOTAL PROTEIN 7.4 GM/DL (6.4-8.2)
[2017-07-07] MEDS: DOCUSATE SODIUM 50 MG/SENNA 8.6 MG TAB PO SCH ×2 (08:46→19:39)
[2017-07-07] MEDS: ACETAMINOPHEN/HYDROcodone 325 MG/10 MG TAB PO PRN ×2 (08:46→23:48)
[2017-07-07 11:25] VITALS: BP 138/71; PULSE 81; RESP 16; TEMP 98.3; O2SAT 97
--- NOTE | 2017-07-07 12:41 | HHI.PR ---
Subjective Remarks Follow-up asthma. Improving shortness of breath but still with significant wheezing. Discussed with nursing Objective Vitals Vital Signs Date Time Temp Pulse Resp B/P (MAP) Pulse Ox O2 Delivery O2 Flow Rate FiO2 07/07/17 11:25 98.3 81 16 138/71 (93) 97 07/07/17 07:05 98.3 94 16 119/69 (86) 97 07/07/17 04:21 97.7 73 16 110/56 (74) 96 07/07/17 00:12 98.0 90 14 113/58 (76) 97 07/06/17 22:20 07/06/17 21:08 117 26 117/70 (86) 100 Room Air 07/06/17 21:02 100 Room Air 07/06/17 14:40 98.4 99 30 103/70 (81) 97 I/O 07/06/17 07/06/17 07/06/17 07/07/17 07/07/17 07/07/17 07:00 15:00 23:00 07:00 15:00 23:00 Intake Total 100 ml Balance 100 ml Intake IV Total 100 ml # Voids 2 Result Diagram: 07/07/17 0601 07/07/17 0601 Imaging Last 24 hours Impressions Chest X-Ray 07/06/17 1644 Signed Impressions: Service Date/Time: Thursday, July 06, 2017 16:54 - CONCLUSION: No acute disease. Erwin Norman MD Objective Remarks GENERAL: An female in no acute distress. HEENT: PERRLA, EOMI. No scleral icterus or conjunctival pallor. No lid lag or facial droop. CARDIOVASCULAR: Regular rate and rhythm. No obvious murmurs to auscultation. No chest tenderness to palpation. RESPIRATORY: Diffuse expiratory wheezing. Breath sounds equal bilaterally. GASTROINTESTINAL: Abdomen soft, non-tender, nondistended. BS normal. MUSCULOSKELETAL: Extremities without clubbing, cyanosis, or edema. No obvious deformities. NEUROLOGICAL: Awake, alert and oriented x4. No focal neurologic deficits. Moving both upper and lower extremities spontaneously. Procedures none A/P Problem List: (1) Asthma exacerbation ICD Code: J45.901 - Unspecified asthma with (acute) exacerbation Status: Acute (2) Dehydration ICD Code: E86.0 - Dehydration Assessment and Plan 1. Asthma: Recurrent Exacerbation, recent eval on 07/03/17 for similar, now w/ ongoing SOB/wheezing, s/p Solu-Medrol and DuoNeb in ER w/ persistent symptoms. Admit for Observation, Solu-Medrol q6h, Albuterol Neb, Symbicort, Mucinex. CXR w/ no acute findings, images reviewed by me. 2. Dehydration: GFR 71, likely from increased respiratory losses. IVF for hydration, repeat labs improved 3. DVT Prophylaxis: SCD/teds. Discharge Planning Patient still with active wheezing not ready for discharge Problem Qualifiers (1) Asthma exacerbation: Qualified Codes: J45.901 - Unspecified asthma with (acute) exacerbation Ivan Lam MD Jul 07, 2017 12:40
[2017-07-07 14:57] VITALS: BP 112/57; PULSE 92; RESP 18; TEMP 97.8; O2SAT 97
[2017-07-07] MEDS: RESP: ALBUTEROL 2.5 MG/3 ML NEB (PRN) NEB (16:18)
[2017-07-07] MEDS: RESP: ALBUTEROL 0.63 MG/3 ML NEB (SCH) NEB (19:49)
[2017-07-07 20:29] VITALS: BP 131/68; PULSE 105; RESP 20; TEMP 98.1; O2SAT 99
[2017-07-07] MEDS ORDERED: LORazepam 0.5 MG TAB PO ONE (21:45)
[2017-07-07 22:20] LABS: HEMOGLOBIN A1C 5.4 % (4.3-6.0)
[2017-07-08] VITALS (8 sets, daily range): BP systolic 106–127; BP diastolic 58–72; PULSE 87–100; RESP 16–20; TEMP 97.6–98.8; O2SAT 97–100
[2017-07-08] MEDS: methylPREDNISolone SOD SUCC 40 MG/1 ML VIAL IV PUSH SCH ×3 (05:45→18:07)
[2017-07-08] MEDS: RESP: ALBUTEROL 0.63 MG/3 ML NEB (SCH) NEB (07:20)
[2017-07-08] MEDS: DOCUSATE SODIUM 50 MG/SENNA 8.6 MG TAB PO SCH ×2 (08:00→20:05)
[2017-07-08] MEDS: ACETAMINOPHEN/HYDROcodone 325 MG/10 MG TAB PO PRN (08:01)
[2017-07-08] MEDS: BUDESONIDE-FORMOTEROL 160/4.5 MCG INHALER INH SCH ×2 (10:11→20:04)
[2017-07-08] MEDS: SODIUM CHLORIDE 0.9% FLUSH 10 ML FLUSH IV FLUSH SCH ×2 (10:11→20:07)
[2017-07-08] MEDS ORDERED: CYCLOBENZAPRINE HCL 10 MG TAB PO ONE (11:15)
[2017-07-08] MEDS ORDERED: hydrOXYzine PAMOATE 25 MG CAP PO ONE (11:15)
[2017-07-08] MEDS: RESP: ALBUTEROL 2.5 MG/3 ML NEB (PRN) NEB (11:32)
[2017-07-08] MEDS: RESP: ALBUTEROL 1.25 MG/3 ML NEB (SCH) NEB ×3 (11:33→19:41)
[2017-07-08] MEDS ORDERED: RESP: ALBUTEROL 2.5 MG/3 ML NEB (SCH) NEB (12:00)
--- NOTE | 2017-07-08 13:57 | HHI.PR ---
Subjective Remarks Follow-up asthma exacerbation and back pain. Improving dyspnea but still with significant wheezing. Reports of left lower back pain denies trauma not relieved by narcotic. Heat pads provide relief. Also very anxious. Discussed with nursing Objective Vitals Vital Signs Date Time Temp Pulse Resp B/P (MAP) Pulse Ox O2 Delivery O2 Flow Rate FiO2 07/08/17 11:25 97.6 90 16 127/63 (84) 97 07/08/17 09:00 18 07/08/17 08:43 98.2 92 18 106/65 (79) 99 07/08/17 07:25 100 Nasal Cannula 2.00 07/08/17 04:46 98.1 87 20 118/72 (87) 100 07/08/17 00:31 97.8 88 20 112/58 (76) 97 07/07/17 20:29 98.1 105 20 131/68 (89) 99 07/07/17 14:57 97.8 92 18 112/57 (75) 97 I/O 07/07/17 07/07/17 07/07/17 07/08/17 07/08/17 07/08/17 07:00 15:00 23:00 07:00 15:00 23:00 Intake Total 1500 ml Balance 1500 ml Intake Oral 1500 ml # Voids 2 4 Result Diagram: 07/07/17 0601 07/07/17 0601 Imaging Last Impressions Chest X-Ray 07/06/17 1644 Signed Impressions: Service Date/Time: Thursday, July 06, 2017 16:54 - CONCLUSION: No acute disease. Erwin Norman MD Objective Remarks GENERAL: An female in no acute distress. HEENT: PERRLA, EOMI. No scleral icterus or conjunctival pallor. No lid lag or facial droop. CARDIOVASCULAR: Regular rate and rhythm. No obvious murmurs to auscultation. No chest tenderness to palpation. RESPIRATORY: Diffuse expiratory wheezing which is improving. Breath sounds equal bilaterally. GASTROINTESTINAL: Abdomen soft, non-tender, nondistended. BS normal. MUSCULOSKELETAL: Extremities without clubbing, cyanosis, or edema. No obvious deformities. NEUROLOGICAL: Awake, alert and oriented x4. No focal neurologic deficits. Moving both upper and lower extremities spontaneously. Procedures none A/P Problem List: (1) Asthma exacerbation ICD Code: J45.901 - Unspecified asthma with (acute) exacerbation Status: Acute (2) Dehydration ICD Code: E86.0 - Dehydration Assessment and Plan 1. Asthma: Recurrent Exacerbation, recent eval on 07/03/17 for similar, now w/ ongoing SOB/wheezing, s/p Solu-Medrol and DuoNeb in ER w/ persistent symptoms. Admit for Observation, Solu-Medrol q6h, Albuterol Neb, Symbicort, Mucinex. CXR w/ no acute findings, images reviewed by me. Slowly improving 2. Dehydration: GFR 71, likely from increased respiratory losses. IVF for hydration, repeat labs improved 3. Lower back pain likely musculoskeletal. Add NSAIDs with muscle relaxers. Lortab as needed counseled regarding narcotics. Check ESR 4. Anxiety. Vistaril DVT Prophylaxis: SCD/teds. Discharge Planning Patient still with active wheezing not ready for discharge Problem Qualifiers (1) Asthma exacerbation: Qualified Codes: J45.901 - Unspecified asthma with (acute) exacerbation Ivan Lam MD Jul 08, 2017 13:57
[2017-07-08] MEDS: IBUPROFEN 600 MG TAB PO SCH ×2 (15:42→21:56)
[2017-07-08] MEDS: CYCLOBENZAPRINE HCL 10 MG TAB PO PRN (20:05)
[2017-07-08] MEDS: hydrOXYzine PAMOATE 25 MG CAP PO PRN (20:06)
[2017-07-09] MEDS: methylPREDNISolone SOD SUCC 40 MG/1 ML VIAL IV PUSH SCH ×3 (00:36→12:37)
[2017-07-09 00:43] VITALS: BP 106/74; PULSE 80; RESP 20; TEMP 98.1; O2SAT 100
[2017-07-09 03:25] VITALS: BP 117/75; PULSE 77; RESP 16; TEMP 98.3; O2SAT 99
[2017-07-09] MEDS: IBUPROFEN 600 MG TAB PO SCH (05:38)
[2017-07-09] MEDS: CYCLOBENZAPRINE HCL 10 MG TAB PO PRN (05:42)
[2017-07-09] MEDS: RESP: ALBUTEROL 1.25 MG/3 ML NEB (SCH) NEB ×2 (08:17→11:35)
[2017-07-09 08:25] VITALS: BP 121/71; PULSE 89; RESP 16; TEMP 97.5; O2SAT 98
--- NOTE | 2017-07-09 08:44 | HHI.PR ---
Subjective Remarks Follow-up asthma and lower back pain. Improving shortness of breath. Ambulating in the hallway with out difficulty. Reports of ongoing left lower back pain worse with coughing. Discussed with nursing Objective Vitals Vital Signs Date Time Temp Pulse Resp B/P (MAP) Pulse Ox O2 Delivery O2 Flow Rate FiO2 07/09/17 08:25 97.5 89 16 121/71 (88) 98 07/09/17 08:19 Nasal Cannula 2.00 07/09/17 03:25 98.3 77 16 117/75 (89) 99 07/09/17 00:43 98.1 80 20 106/74 (85) 100 07/08/17 19:45 98.1 89 16 116/70 (85) 97 07/08/17 19:42 98 Nasal Cannula 2.00 07/08/17 14:52 98.8 100 16 120/72 (88) 100 07/08/17 11:25 97.6 90 16 127/63 (84) 97 07/08/17 09:00 18 I/O 07/08/17 07/08/17 07/08/17 07/09/17 07/09/17 07/09/17 07:00 15:00 23:00 07:00 15:00 23:00 Intake Total 1500 ml 1000 ml Balance 1500 ml 1000 ml Intake Oral 1500 ml 1000 ml # Voids 4 2 Result Diagram: 07/07/17 0601 07/07/17 0601 Imaging Last Impressions Chest X-Ray 07/06/17 1644 Signed Impressions: Service Date/Time: Thursday, July 06, 2017 16:54 - CONCLUSION: No acute disease. Erwin Norman MD Objective Remarks GENERAL: An female in no acute distress. HEENT: PERRLA, EOMI. No scleral icterus or conjunctival pallor. No lid lag or facial droop. CARDIOVASCULAR: Regular rate and rhythm. No obvious murmurs to auscultation. No chest tenderness to palpation. RESPIRATORY: Much improved expiratory wheezes. Breath sounds equal bilaterally. GASTROINTESTINAL: Abdomen soft, non-tender, nondistended. BS normal. MUSCULOSKELETAL: Extremities without clubbing, cyanosis, or edema. No obvious deformities. No back tenderness NEUROLOGICAL: Awake, alert and oriented x4. No focal neurologic deficits. Moving both upper and lower extremities spontaneously. Procedures none A/P Problem List: (1) Asthma exacerbation ICD Code: J45.901 - Unspecified asthma with (acute) exacerbation Status: Acute (2) Dehydration ICD Code: E86.0 - Dehydration Assessment and Plan 1. Asthma: Recurrent Exacerbation, much improved on steroids, nebulization and Symbicort. Chest x-ray with no acute findings. Increase activity as tolerated 2. Dehydration: GFR 71, likely from increased respiratory losses. IVF for hydration, repeat labs improved 3. Lower back pain likely musculoskeletal. Normal ESR continue NSAIDs with muscle relaxers. Lortab as needed counseled regarding narcotics. 4. Anxiety. Vistaril DVT Prophylaxis: SCD/teds. Discharge Planning Stable for discharge Problem Qualifiers (1) Asthma exacerbation: Qualified Codes: J45.901 - Unspecified asthma with (acute) exacerbation Ivan Lam MD Jul 09, 2017 08:44
[2017-07-09] MEDS: BUDESONIDE-FORMOTEROL 160/4.5 MCG INHALER INH SCH (08:50)
[2017-07-09] MEDS: DOCUSATE SODIUM 50 MG/SENNA 8.6 MG TAB PO SCH (08:50)
[2017-07-09] MEDS: ACETAMINOPHEN/HYDROcodone 325 MG/10 MG TAB PO PRN ×2 (08:51→12:37)
[2017-07-09] MEDS: SODIUM CHLORIDE 0.9% FLUSH 10 ML FLUSH IV FLUSH SCH (08:51)
[2017-07-09] MEDS: hydrOXYzine PAMOATE 25 MG CAP PO PRN (10:16)
[2017-07-09] MEDS ORDERED: PRED20 PO (10:27)
[2017-07-09 12:33] VITALS: BP 125/75; PULSE 85; RESP 16; TEMP 98.4; O2SAT 99
[2017-07-09] MEDS ORDERED: ALBUAER3 INH (14:38)
[2017-07-09] MEDS ORDERED: Budeson-Formot 160-4.5 Mcg Inh INH (14:38)
--- NOTE | 2017-07-09 14:40 | HHI.DCPOC ---
Discharge Care Plan Diagnosis: (1) Asthma exacerbation Goals to Promote Your Health * To prevent worsening of your condition and complications * To maintain your health at the optimal level Directions to Meet Your Goals Take your medications as prescribed Follow your dietary instruction Follow activity as directed Keep your appointments as scheduled Take your immunizations and boosters as scheduled If your symptoms worsen call your PCP, if no PCP go to Urgent Care Center or Emergency Room Smoking is Dangerous to Your Health. Avoid second hand smoke Call the 24-hour hour crisis hotline for domestic abuse at Aracely Nuñez PA-C Jul 09, 2017 2:40 pm
[2017-07-09] MEDS ORDERED: IBUP-232 PO (14:41)
--- NOTE | 2017-07-09 16:49 | HHI.DS ---
Discharge Summary Admission Date Jul 06, 2017 at 20:58 Discharge Date: Jul 09, 2017 Admitting Diagnosis Asthma exacerbation (1) Asthma exacerbation ICD Code: J45.901 - Unspecified asthma with (acute) exacerbation Diagnosis: Principal Status: Acute (2) Dehydration ICD Code: E86.0 - Dehydration Diagnosis: Principal Procedures none Brief History - From Admission This is a 31-year-old female with a PMH of Anxiety and Asthma who was sent to the ER with complaints of SOB and wheezing since this morning. Seen in ER on 07/03/17 for similar symptoms, s/p Steroids/DuoNeb w/ improvement and discharged home. Today, w/ recurrent symptoms. Denies fever, chills, cough or sick contacts. On arrival, BP 103/70, HR 99, O2 sat 97% on RA, Afebrile. WBC 12.9. Chemistry unremarkable. GFR 71. CXR with no acute findings. On exam, patient with expiratory wheezing despite multiple DuoNeb treatments and Solu- Medrol. CBC/BMP: 07/07/17 0601 07/07/17 0601 Significant Findings Laboratory Tests Test 07/06/17 19:30 07/07/17 06:01 07/08/17 20:25 White Blood Count 12.9 TH/MM3 (4.0-11.0) Neutrophils (%) (Auto) 95.7 % (16.0-70.0) 93.1 % (16.0-70.0) Lymphocytes (%) (Auto) 2.7 % (9.0-44.0) 5.2 % (9.0-44.0) Neutrophils # (Auto) 12.3 TH/MM3 (1.8-7.7) Lymphocytes # (Auto) 0.3 TH/MM3 (1.0-4.8) 0.3 TH/MM3 (1.0-4.8) Random Glucose 174 MG/DL (74-106) 149 MG/DL (74-106) Aspartate Amino Transf (AST/SGOT) 38 U/L (15-37) Total Bilirubin 1.7 MG/DL (0.2-1.0) Carbon Dioxide Level 19.3 MEQ/L (21.0-32.0) Estimat Glomerular Filtration Rate 71 ML/MIN (>89) Chloride Level 108 MEQ/L (98-107) Imaging Last Impressions Chest X-Ray 07/06/17 1644 Signed Impressions: Service Date/Time: Thursday, July 06, 2017 16:54 - CONCLUSION: No acute disease. Erwin Norman MD PE at Discharge GENERAL: An female in no acute distress. HEENT: PERRLA, EOMI. No scleral icterus or conjunctival pallor. No lid lag or facial droop. CARDIOVASCULAR: Regular rate and rhythm. No obvious murmurs to auscultation. No chest tenderness to palpation. RESPIRATORY: Much improved expiratory wheezes. Breath sounds equal bilaterally. GASTROINTESTINAL: Abdomen soft, non-tender, nondistended. BS normal. MUSCULOSKELETAL: Extremities without clubbing, cyanosis, or edema. No obvious deformities. No back tenderness NEUROLOGICAL: Awake, alert and oriented x4. No focal neurologic deficits. Moving both upper and lower extremities spontaneously. Hospital Course 1. Asthma: Recurrent Exacerbation, much improved on steroids, nebulization and Symbicort. Chest x-ray with no acute findings. Increase activity as tolerated 2. Dehydration: GFR 71, likely from increased respiratory losses. IVF for hydration, repeat labs improved 3. Lower back pain likely musculoskeletal. Normal ESR continue NSAIDs with muscle relaxers. Lortab as needed counseled regarding narcotics. 4. Anxiety. Vistaril DVT Prophylaxis: SCD/teds. Pt Condition on Discharge: Stable Discharge Disposition: Discharge Home Discharge Time: > 30 minutes Discharge Instructions DIET: Follow Instructions for: As Tolerated, No Restrictions Activities you can perform: Regular-No Restrictions Follow up Referrals: PCP Follow-up - 1 Week with [facility] New Medications: Ibuprofen (Ibuprofen) 600 Mg Tab 600 MG PO Q8H PRN for back pain, #20 TAB 0 Refills Take with food. [Budeson-Formot 160-4.5 Mcg Inh] () 60 PUFF AERO 2 PUFF INH Q12HR for Asthma Management, #1 INHALER Changed Medications: Prednisone (Prednisone) 20 Mg Tab 40 MG PO DAILY for asthma for 5 Days, #10 TAB 0 Refills (Changed from: 20 MG) Continued Medications: Albuterol 8.5 GM Inh (Proair Hfa 8.5 GM Inh) 90 Mcg/Act Aer 2 PUFF INH Q4-6H PRN for SHORTNESS OF BREATH, #1 INHALER 1 Refill (This prescription has been renewed) 108 mcg/actuation Ivan Lam MD Jul 09, 2017 16:49
== END 2017-07-09 17:46 | disposition home or self-care (01) ==
LOC: NEPD 14:31 → NEDA 20:58 → NEPGCP 22:09
PROVIDERS: ADMIT Internal Medicine; ATTEND Internal Medicine
DX: J45.901 Unspecified asthma with (acute) exacerbation (principal); E86.0 Dehydration; M54.5 Low back pain; R00.0 Tachycardia, unspecified; F41.9 Anxiety disorder, unspecified; F12.90 Cannabis use, unspecified, uncomplicated
CPT/HCPCS: 71045; 80053; 83036; 85025; 85652; 94618; 94640; 94664; 96361; 96365; 96375; 96376; 99285; G0378; J1885; J2920; J2930; J3475; J7030; J7613; Q0177

== ENCOUNTER 2017-10-10 08:27 | Emergency (ER) | payer SELFPAY ==
[~2017-10-10] VITALS: Ht 170.2 cm; Wt 80.0 kg
[~2017-10-10 08:27] MED LIST changes: +Budeson-Formot 160-4.5 Mcg Inh INH; +IBUP-232 PO
[2017-10-10 08:38] VITALS: BP 124/68; PULSE 69; RESP 16; TEMP 98.4; O2SAT 99
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
[2017-10-10] MEDS ORDERED: IBUP1TAB7 PO (09:26)
[2017-10-10] MEDS ORDERED: BACT800T5 PO (09:26)
[2017-10-10] MEDS ORDERED: BACTOIN EACH NARE (09:26)
[2017-10-10] MEDS ORDERED: MUPI2%T TOPICAL (09:34)
== END 2017-10-10 09:48 | disposition home or self-care (01) ==
LOC: NEPD 08:27
DX: S50.311A Abrasion of right elbow, initial encounter (principal); V18.2XXA Unspecified pedal cyclist injured in noncollision transport accident in nontraffic accident, initial encounter; Y93.55 Activity, bike riding
CPT/HCPCS: 73080; 99283

== ENCOUNTER 2018-01-21 10:24 | Observation (INO) ==
[2018-01-21] MEDS ORDERED: MethylPREDNISolone Sod Succinate Inj 125 MG/2 ML Vial IV.PUSH ONE (10:46)
--- NOTE | 2018-01-21 10:54 | ED ---
HPI General Chief Complaint: Respiratory Symptoms Stated Complaint: Sob Time Seen by Provider: 01/21/18 10:40 Source: patient Mode of arrival: ambulatory Limitations: no limitations History of Present Illness The patient is a 32-year-old female who presents to the emergency department via private vehicle for shortness of breath. The patient notes a 2 day history of shortness of breath with progressing symptoms. The patient does complain of a productive cough initially producing white sputum, now nonproductive. The patient also complains of wheezing, dizziness, and lightheadedness. The patient does have a history of asthma and possible environmental allergies. The patient recently relocated from [place], [place], to the local area and thinks she may have allergies to the area as she had a similar reaction in June when she was in the local area. The patient' s last hospitalization was June 2017. She was last on steroids orally in June 2017. She denies any previous intubations, notes 2 prior admissions for asthma. The patient denies any history of pulmonary embolism, DVT, or congestive heart failure. She denies , denies sexual relations with men. Symptoms are moderate. MD Complaint: shortness of breath, cough and "asthma attack" Onset (ago): day(s) Context: allergen exposure Severity: moderate Consistency/Duration: progressively worsening Relieving factors: nothing Exacerbating factors: allergies Known history of: asthma Associated symptoms: cough, wheezing, sputum production and dizziness Treatment prior to arrival: bronchodilator Related Data Home oxygen amount: none Previous Rx's Medication Instructions Recorded ibuprofen 800 mg PO Q6-8H PRN #30 tab 11/11/17 Allergies Allergy/AdvReac Type Severity Reaction Status Date / Time No Known Allergies Allergy Unverified 11/11/17 16:10 Review of Systems ROS: all other systems reviewed are negative [facility] Medical History Medical History Asthma (Acute) Surgical History Surgical History History of cholecystectomy (Acute) Social History Social History Substance History: Active Abuse Smoking Status: Current every day smoker Tobacco Type: Pipe How Often Do You Have a Drink Containing Alcohol: Monthly or less Recent Travel in [facility] within the Last 8 Weeks: No Recent Out of Country Travel within the Last 8 Weeks: No Exam Narrative Exam Narrative: GENERAL: Awake, alert, pleasant 32-year-old female who appears her stated age and is in mild respiratory distress. SKIN: Focused skin assessment warm/dry. HEAD: Atraumatic. Normocephalic. EYES: Pupils equal and round. No scleral icterus. No injection or drainage. ENT: No nasal bleeding or discharge. Mucous membranes pink and moist. NECK: Trachea midline. No JVD. CARDIOVASCULAR: Regular rate and rhythm. No murmur appreciated. RESPIRATORY: No accessory muscle use. Tachypnea with a respiratory rate of 24. Prolonged expiratory phase with diffuse wheezing. GASTROINTESTINAL: Abdomen soft, non-tender, nondistended. MUSCULOSKELETAL: No obvious deformities. No clubbing. No cyanosis. No edema. NEUROLOGICAL: Awake and alert. No obvious cranial nerve deficits. Motor grossly within normal limits. Normal speech. PSYCHIATRIC: Appropriate mood and affect; insight and judgment normal. Course Initial Documented Vital Signs Temperature 97.2 F L 01/21/18 10:31 Pulse Rate 75 01/21/18 10:31 Respiratory Rate 24 01/21/18 10:31 Blood Pressure 139/70 01/21/18 10:31 Pulse Oximetry 99 01/21/18 10:31 Last Documented Vital Signs Temperature 97.2 F L 01/21/18 10:31 Pulse Rate 84 01/21/18 12:53 Respiratory Rate 18 01/21/18 12:53 Blood Pressure 139/69 01/21/18 12:00 Pulse Oximetry 97 01/21/18 12:00 Clinical Decision Support PERC Rule Age greater than or equal to 50: No HR greather than or equal to 100: No Sa02 on room air is less than 95%: No Unilateral Leg Swelling: No Hemoptysis: No Recent Surgery or Trauma: No Prior PE or DVT: No Hormone Use: No Medical Decision Making MDM Narrative Medical decision making narrative: IV was established and the patient was placed on cardiac telemetry monitoring and continuous pulse oximetry monitoring. The patient was administered Solu-Medrol 125 mg intravenously and duo nebs 3. Chest x-ray was obtained. Chest x-ray was unremarkable. The patient was reevaluated after nebulizers and the patient continued to have tachypnea with a respiratory rate of 24, continue to have tight breath sounds with prolonged expiratory phase and wheezing. The patient was ruled out for PE with PERC. The patient did not appear to have significant improvement, most likely will benefit from 23 hour observation, serial nebulizers, and transition to oral steroids. Therefore, the on-call medical service was paged for 23 hour observation. I discussed the patient with Dr. Espinoza who agrees with 23 hour observation. Medical Screen Exam Complete: Yes Emergency Medical Condition: Yes Differential Diagnosis Differential Diagnosis: Differential diagnosis includes asthma exacerbation, pneumothorax, pneumonia, bronchitis, pulmonary embolism, cardiomyopathy, pulmonary edema, congestive heart failure, ACS. Imaging Data Attestation: I personally reviewed and interpreted this imaging study as follows : My impression: No acute cardiopulmonary disease. Radiologist's impression: Chest X-Ray 01/21/18 10:46 CONCLUSION: Negative examination. Discharge Plan Discharge Disposition Patient Disposition: 30 Still Patient Discharge Condition Condition: Stable Discharge Details Diagnosis: Asthma exacerbation Physicians Team ED Provider: Augusto Dotson Primary Care Provider: Primary Care Mita Rodríguez Rxs /Orders / Referrals /Forms Prescriptions: No Action ibuprofen 800 mg tablet 800 mg PO Q6-8H PRN (Reason: pain) Qty: 30 RF: 0 Status ED Status: Pending Admission
[2018-01-21] MEDS ORDERED: Sod Chloride 0.9% Inj 1,000 ML IV.SIG SCH (11:00)
--- NOTE | 2018-01-21 11:24 | XR ---
EXAM DATE: 01/21/2018 11:19 AM EDT AGE/SEX: 32 years / Female INDICATIONS: Short of breath. CLINICAL DATA: This is the patient's initial encounter. Patient reports that signs and symptoms have been present for 1 day and indicates a pain score of 0/10. MEDICAL/SURGICAL HISTORY: None. None. COMPARISON: [facility] [place], CHEST SINGLE AP, 07/06/2017. . FINDINGS: A single AP view of the chest demonstrates the lungs to be symmetrically aerated without evidence of mass, infiltrate or effusion. The cardiomediastinal contours are unremarkable. Osseous structures a re intact. CONCLUSION: Negative examination. Electronically signed by: Jasper Tejada MD 01/21/2018 11:23 AM EDT
[2018-01-21] MEDS: Benzonatate 100 MG Capsule PO SCH ×2 (14:15→21:00)
--- NOTE | 2018-01-21 14:15 | P.HP ---
History of Present Illness Primary Care Physician: No Primary Care Physician Chief Complaint: cough/wheezing/SOB History of Present Illness: 32-year-old female with history of asthma presents with a 2 day history of worsening cough, shortness breath, and wheezing. 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 She states her cough became so bad that she started to feel very lightheaded with near-syncope. She also reports wheezing and shortness of breath, worse with minimal exertion. She has been using her home Spiriva and pro-air without any relief. She denies fevers or chills. She was last hospitalized in June 2017 for an asthma exacerbation after an upper respiratory infection. She has never been hospitalized. Denies any lower extremity swelling or calf pain. Denies any chest pain other than feeling sore all over with coughing. Denies any other medical complaints. Review of Systems All other systems reviewed negative except as stated in HPI PMFSH - History History Provided By: Patient - Medical History Medical History: Medical History (Last Reviewed 01/21/18 @ 14:45 by Aracely Nuñez) Asthma - Surgical History Surgical History: Surgical History (Last Reviewed 01/21/18 @ 14:45 by Aracely Nuñez) History of cholecystectomy - Family History Family History: Family History (Last Updated 01/21/18 @ 14:46 by Aracely Nuñez) Other Family history reviewed with no changes - Tobacco History Tobacco Use In Past 30 Days: No Smoking Status: Former smoker (Smoked tobacco 1 pack every 2-3days [id number], quit Jun 2017) Tobacco Type: Cigarettes - Alcohol History How Often Do You Have a Drink Containing Alcohol: Never - Substance Use History Substance History: Active Abuse - Substance Use Type Marijuana Status: Active (3x/week) Route Used: Inhalation Reason for Use: Calm Down - Travel History Recent Travel in the [place] Within the Last 8 Weeks: No Recent Travel Out of the Country Within the Last 8 Weeks: No - Immunization History Tetanus Immunization: Unsure Hx Influenza Vaccine This Season: No Medications and Allergies Active Medications: Active Medications Al Hydroxide/Mg Hydroxide (Milk Of Magnlisa Liq) 30 ml PO Q12H PRN PRN Reason: Mild Constipation Albuterol (Duoneb Neb (Namita)) 1 ampul NEB Q6HR ALT NEB NAMITA Benzonatate (Tessalon Perles) 100 mg PO Q8H NAMITA Guaifenesin/Dextromethorphan (Robitussin Dm 200/20 Mg/10 Ml Liq) 10 ml PO Q4H PRN PRN Reason: COUGH Sodium Chloride (Ns Inj) 1,000 mls @ 0 mls/hr IV.SIG BOLUS NAMITA Last Admin: 01/21/18 11:27 Dose: 1,000 mls/hr Lactulose (Lactulose Liq) 30 ml PO DAILY PRN PRN Reason: SEVERE CONSITIPATION Methylprednisolone Sodium Succinate (Solumedrol Inj) 40 mg IV.PUSH Q8H NAMITA Sennosides (Senokot) 17.2 mg PO Q12H PRN PRN Reason: Moderate Constipation Allergies Allergy/AdvReac Type Severity Reaction Status Date / Time No Known Allergies Allergy Unverified 11/11/17 16:10 Exam Vital signs: Vital Signs 01/21/18 10:31 01/21/18 11:10 01/21/18 12:00 Temperature 97.2 F L Pulse Rate 75 77 94 H Respiratory Rate 24 18 24 Blood Pressure 139/70 139/69 Pulse Oximetry 99 97 01/21/18 12:53 Temperature Pulse Rate 84 Respiratory Rate 18 Blood Pressure Pulse Oximetry Intake & Output 01/20/18 01/21/18 01/21/18 18:59 06:59 18:59 Weight 77.564 kg Narrative: GENERAL: Well-nourished, well-developed patient in [facility]. SKIN: Warm and dry. No rash. HEENT: Normocephalic. Atraumatic. Pupils equal and round. Mucous membranes pink and moist. NECK: Supple. Trachea midline. CARDIOVASCULAR: Regular rate and rhythm. No murmur appreciated. RESPIRATORY: Tachypneic. No accessory muscle use. Diffuse expiratory wheezing with prolonged expiratory phase. Breath sounds equal bilaterally. GASTROINTESTINAL: Abdomen soft, non-tender, nondistended. Normoactive bowel sounds x4. MUSCULOSKELETAL: No obvious deformities. Extremities without clubbing, cyanosis , or edema. Bilateral calves nontender to palpation. NEUROLOGICAL: Awake and alert. No obvious cranial nerve deficits. Motor grossly within normal limits. Moving all extremities spontaneously. Normal speech. PSYCHIATRIC: Appropriate mood and affect; insight and judgment normal. Results - Imaging Impressions Chest X-Ray 01/21/18 10:46 CONCLUSION: Negative examination. Caprini VTE Risk Assessment Caprini VTE Risk Assessment: No/Low Risk (score <= 1) Caprini Risk Assessment Model: Point Value = 1 Point Value = 2 Point Value = 3 Point Value = 5 Age 41-60 Minor surgery BMI > 25 kg/m2 Swollen legs Varicose veins or History of unexplained or recurrent spontaneous Oral contraceptives or hormone replacement Sepsis (< 1 month) Serious lung disease, including pneumonia (< 1 month) Abnormal pulmonary function Acute myocardial infarction Congestive heart failure (< 1 month) History of inflammatory bowel disease Medical patient at bed rest Age 61-74 Arthroscopic surgery Major open surgery (> 45 min) Laparoscopic surgery (> 45 min) Malignancy Confined to bed (> 72 hours) Immobilizing plaster cast Central venous access Age >= 75 History of VTE Family history of VTE Factor V Leiden Prothrombin [id number] Lupus anticoagulant Anticardiolipin antibodies Elevated serum homocysteine Heparin-induced thrombocytopenia Other congenital or acquired thrombophilia Stroke (< 1 month) Elective arthroplasty Hip, pelvis, or leg fracture Acute spinal cord injury (< 1 month) Prophylaxis Regimen: Total Risk Factor Score Risk Level Prophylaxis Regimen 0-1 Low Early ambulation 2 Moderate Order ONE of the following: *Sequential Compression Device (SCD) *Heparin 5000 units SQ BID 3-4 Higher Order ONE of the following medications: *Heparin 5000 units SQ TID *Enoxaparin/Lovenox 40 mg SQ daily (WT < 150 kg, CrCl > 30 mL/min) *Enoxaparin/Lovenox 30 mg SQ daily (WT < 150 kg, CrCl > 10-29 mL/min) *Enoxaparin/Lovenox 30 mg SQ BID (WT < 150 kg, CrCl > 30 mL/min) AND/OR *Sequential Compression Device (SCD) 5 or more Highest Order ONE of the following medications: *Heparin 5000 units SQ TID (Preferred with Epidurals) *Enoxaparin/Lovenox 40 mg SQ daily (WT < 150 kg, CrCl > 30 mL/min) *Enoxaparin/Lovenox 30 mg SQ daily (WT < 150 kg, CrCl > 10-29 mL/min) *Enoxaparin/Lovenox 30 mg SQ BID (WT < 150 kg, CrCl > 30 mL/min) AND *Sequential Compression Device (SCD) Assessment and Plan - Plan 32-year-old female with history of asthma presents with a 2 day history of worsening cough, shortness breath, and wheezing. Acute asthma exacerbation: Patient with significant wheezing on exam. -CXR reviewed, no acute findings -Continue steroids with IV Solu-Medrol 40 mg q8h -Continue bronchodilators with DuoNeb's q6h and q2h prn -Advised to avoid exposure to allergens, patient works in construction, recently installing drywall, advised to wear mask -Tessalon perles tid, Robitussin prn DVT Prophylaxis: low risk, ambulation
[2018-01-21] MEDS ORDERED: Acetaminophen 325 MG Tablet PO PRN (15:45)
[2018-01-21] MEDS: MethylPREDNISolone Sod Succinate Inj 40 MG/ML Vial IV.PUSH SCH (20:46)
[2018-01-21] MEDS: guaiFENesin/Dextromethorphan 200 MG/20 MG 10 ML UDC PO PRN (20:47)
[2018-01-22] MEDS: guaiFENesin/Dextromethorphan 200 MG/20 MG 10 ML UDC PO PRN ×2 (01:55→08:01)
[2018-01-22] MEDS: Benzonatate 100 MG Capsule PO SCH ×2 (06:06→13:55)
[2018-01-22] MEDS: MethylPREDNISolone Sod Succinate Inj 40 MG/ML Vial IV.PUSH SCH ×3 (06:06→20:33)
--- NOTE | 2018-01-22 12:29 | P.PNIM ---
Subjective Interval history: The patient said that her breathing was a little bit better. She said she was having pain in her left back from coughing frequently and the shortness of breath. She said that she still smokes marijuana. She does not smoke cigarettes. 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 Physical Exam Vital signs: Vital Signs 01/21/18 12:53 01/21/18 14:29 01/21/18 15:11 Temperature Pulse Rate 84 84 Respiratory Rate 18 18 Blood Pressure Pulse Oximetry 97 01/21/18 16:00 01/21/18 19:46 01/21/18 20:00 Temperature 98.0 F 97.7 F Pulse Rate 91 H 81 92 H Respiratory Rate 20 24 20 Blood Pressure 121/65 130/72 Pulse Oximetry 90 L 100 01/22/18 00:00 01/22/18 04:00 01/22/18 08:21 Temperature 98.1 F 98.2 F Pulse Rate 96 H 91 H 71 Respiratory Rate 20 20 18 Blood Pressure 130/69 124/64 Pulse Oximetry 99 96 97 01/22/18 09:00 01/22/18 09:34 Temperature 97.6 F Pulse Rate 78 Respiratory Rate 18 20 Blood Pressure 100/66 Pulse Oximetry 98 Intake & Output 01/21/18 01/22/18 01/22/18 18:59 06:59 18:59 Intake Total 0 / 0 1000 / 1000 Balance 0 / 0 1000 / 1000 Weight 77.564 kg 76.3 kg Intake: IV 0 / 0 1000 / 1000 NS Inj 1,000 ML @ Wide Open IV. 0 / 0 1000 / 1000 SIG BOLUS NAMITA Rx#:[id number] Other: # Voids 4 Date of Last Bowel Movement 01/21/18 # Bowel Movements 1 Narrative: GENERAL: Well-nourished, well-developed patient in [facility]. SKIN: Warm and dry. No rash. HEENT: Normocephalic. Atraumatic. Pupils equal and round. Mucous membranes pink and moist. NECK: Supple. Trachea midline. CARDIOVASCULAR: Regular rate and rhythm. No murmur appreciated. RESPIRATORY: Diffuse rhonchi and wheezing. GASTROINTESTINAL: Abdomen soft, non-tender, nondistended. Normoactive bowel sounds x4. MUSCULOSKELETAL: No obvious deformities. Extremities without clubbing, cyanosis , or edema. Bilateral calves nontender to palpation. NEUROLOGICAL: Awake and alert. No obvious cranial nerve deficits. Motor grossly within normal limits. Moving all extremities spontaneously. Normal speech. PSYCHIATRIC: Appropriate mood and affect; insight and judgment normal. Assessment and Plan - Plan 32-year-old female with history of asthma presents with a 2 day history of worsening cough, shortness of breath and wheezing. Acute asthma exacerbation Patient with significant wheezing on exam. CXR reviewed, no acute findings. -Continue steroids with IV Solu-Medrol 40 mg q8h. -Continue bronchodilators with DuoNeb's q6h and q2h prn. -Advised to avoid exposure to allergens, patient works in construction, recently installing drywall, advised to wear mask. Also advised to stop smoking marijuana. -Tessalon Perles tid, Robitussin AC prn. -incentive spirometry. Back pain S/t coughing and dyspnea. -Toradol added. -treatment as above. DVT Prophylaxis: low risk, ambulation
[2018-01-22] MEDS: Ketorolac Inj 30 MG/ML (IVP) Vial IV.PUSH SCH ×2 (12:55→18:03)
[2018-01-22] MEDS: guaiFENesin/Codeine Syrup 200 MG/20 MG 10 ML UDC PO PRN ×3 (12:56→20:32)
[2018-01-23] MEDS: Benzonatate 100 MG Capsule PO SCH ×2 (00:05→06:49)
[2018-01-23] MEDS: Ketorolac Inj 30 MG/ML (IVP) Vial IV.PUSH SCH ×4 (00:13→18:32)
[2018-01-23] MEDS: guaiFENesin/Codeine Syrup 200 MG/20 MG 10 ML UDC PO PRN ×3 (03:42→21:20)
[2018-01-23] MEDS: MethylPREDNISolone Sod Succinate Inj 40 MG/ML Vial IV.PUSH SCH ×3 (03:42→21:20)
[2018-01-23 06:55] LABS: Calcium 9.3 mg/dL (8.5-10.1); Potassium 4.8 meq/L (3.5-5.1)
--- NOTE | 2018-01-23 11:50 | P.PNIM ---
Subjective Interval history: The patient said that she was feeling better. She said that she had some swelling in her back. She said she has been having a dry cough. She has been ambulating. Physical Exam Vital signs: Vital Signs 01/22/18 12:28 01/22/18 13:25 01/22/18 14:25 Temperature 98.2 F Pulse Rate 87 Respiratory Rate 20 20 19 Blood Pressure 125/65 Pulse Oximetry 96 01/22/18 16:51 01/22/18 17:19 01/22/18 17:20 Temperature 98.2 F Pulse Rate 77 75 Respiratory Rate 20 16 Blood Pressure 136/72 Pulse Oximetry 98 99 01/22/18 18:54 01/22/18 19:40 01/22/18 20:00 Temperature 98 F Pulse Rate 78 77 Respiratory Rate 17 18 18 Blood Pressure 116/57 L Pulse Oximetry 97 01/22/18 23:52 01/23/18 01:00 01/23/18 04:00 Temperature 97.7 F 97.7 F Pulse Rate 71 72 Respiratory Rate 18 18 Blood Pressure 108/62 126/64 Pulse Oximetry 99 96 98 01/23/18 08:00 01/23/18 09:21 Temperature 97.9 F Pulse Rate 62 72 Respiratory Rate 20 16 Blood Pressure 118/69 Pulse Oximetry 93 L Intake & Output 01/22/18 01/23/18 01/23/18 18:59 06:59 18:59 Weight 74.4 kg Other: Date of Last Bowel Movement 01/23/18 01/23/18 # Bowel Movements 2 Narrative: GENERAL: Well-nourished, well-developed patient in NAD. SKIN: Warm and dry. No rash. HEENT: Normocephalic. Atraumatic. Pupils equal and round. Mucous membranes pink and moist. NECK: Supple. Trachea midline. CARDIOVASCULAR: Regular rate and rhythm. No murmur appreciated. RESPIRATORY: Diffuse rhonchi and wheezing. GASTROINTESTINAL: Abdomen soft, non-tender, nondistended. Normoactive bowel sounds x4. MUSCULOSKELETAL: No obvious deformities. Extremities without clubbing, cyanosis , or edema. Bilateral calves nontender to palpation. NEUROLOGICAL: Awake and alert. No obvious cranial nerve deficits. Motor grossly within normal limits. Moving all extremities spontaneously. Normal speech. PSYCHIATRIC: Appropriate mood and affect; insight and judgment normal. Results - Labs CBC & Chem 7: 01/23/18 05:24 Laboratory Results - last 24 hr 01/23/18 05:24 Sodium 138 Potassium 4.8 Chloride 104 Carbon Dioxide 24.0 Anion Gap 10 BUN 17 Creatinine 0.76 Estimated GFR 88 L Random Glucose 125 H Calcium 9.3 Assessment and Plan - Plan 32-year-old female with history of asthma presents with a 2 day history of worsening cough, shortness of breath and wheezing. Acute asthma exacerbation Patient with significant wheezing on exam. CXR reviewed, no acute findings. -Continue steroids with IV Solu-Medrol 40 mg q8h. -Continue bronchodilators with DuoNeb's q6h and q2h prn. -Advised to avoid exposure to allergens, patient works in construction, recently installing drywall, advised to wear mask. Also advised to stop smoking marijuana. -Robitussin AC prn. -d/c Tessalon Perles as causing pt to cough. -incentive spirometry. Back pain S/t coughing and dyspnea. -Toradol added. -treatment as above. DVT Prophylaxis: low risk, ambulation Discharge Planning: Anticipate d/c in 1-2 days once bronchitis is improved
[2018-01-23] MEDS: LORazepam 0.5 MG Tablet PO PRN (14:42)
[2018-01-24] MEDS: LORazepam 0.5 MG Tablet PO PRN ×2 (01:33→19:42)
[2018-01-24] MEDS: guaiFENesin/Codeine Syrup 200 MG/20 MG 10 ML UDC PO PRN ×6 (01:35→23:29)
[2018-01-24] MEDS: MethylPREDNISolone Sod Succinate Inj 40 MG/ML Vial IV.PUSH SCH ×3 (06:25→19:42)
--- NOTE | 2018-01-24 11:27 | P.PNIM ---
Subjective Interval history: The patient still feels like she is coughing a lot. She says her breathing is better. She feels like she might of pulled a muscle in her back on the left side. She said the codeine has been working. Discussed with nursing. Physical Exam Vital signs: Vital Signs 01/23/18 12:00 01/23/18 14:16 01/23/18 15:53 Temperature 97.8 F Pulse Rate 78 78 Respiratory Rate 18 14 14 Blood Pressure 135/69 Pulse Oximetry 95 01/23/18 16:00 01/23/18 19:37 01/23/18 20:00 Temperature 97.9 F 97.7 F Pulse Rate 70 70 79 Respiratory Rate 18 18 18 Blood Pressure 116/79 116/65 Pulse Oximetry 94 L 98 01/24/18 00:00 01/24/18 04:00 01/24/18 04:10 Temperature 97.5 F L 97.5 F L Pulse Rate 69 64 62 Respiratory Rate 18 16 14 Blood Pressure 122/59 L 106/56 L Pulse Oximetry 98 96 01/24/18 08:00 01/24/18 08:47 01/24/18 09:10 Temperature 97.8 F Pulse Rate 74 111 H Respiratory Rate 16 16 16 Blood Pressure 131/61 Pulse Oximetry 99 95 Intake & Output 01/23/18 01/24/18 01/24/18 18:59 06:59 18:59 Weight 77.1 kg Other: # Voids 7 Date of Last Bowel Movement 01/23/18 01/24/18 01/23/18 Narrative: GENERAL: Well-nourished, well-developed patient in NAD. SKIN: Warm and dry. No rash. HEENT: Normocephalic. Atraumatic. Pupils equal and round. Mucous membranes pink and moist. NECK: Supple. Trachea midline. CARDIOVASCULAR: Regular rate and rhythm. No murmur appreciated. RESPIRATORY: Diffuse rhonchi and wheezing. GASTROINTESTINAL: Abdomen soft, non-tender, nondistended. Normoactive bowel sounds x4. MUSCULOSKELETAL: No obvious deformities. Extremities without clubbing, cyanosis , or edema. Bilateral calves nontender to palpation. NEUROLOGICAL: Awake and alert. No obvious cranial nerve deficits. Motor grossly within normal limits. Moving all extremities spontaneously. Normal speech. PSYCHIATRIC: Appropriate mood and affect; insight and judgment normal. Results - Labs CBC & Chem 7: 01/23/18 05:24 Assessment and Plan - Plan 32-year-old female with history of asthma presents with a 2 day history of worsening cough, shortness of breath and wheezing. Acute asthma exacerbation Patient with significant wheezing on exam. CXR reviewed, no acute findings. -Continue steroids with IV Solu-Medrol 40 mg q8h. -Continue bronchodilators with DuoNeb's q6h and q2h prn. -Advised to avoid exposure to allergens, patient works in construction, recently installing drywall, advised to wear mask. Also advised to stop smoking marijuana. -Robitussin AC prn. -d/c Tessalon Perles as causing pt to cough. -incentive spirometry. -repeat CXR. -encourage ambulation. Back pain S/t coughing and dyspnea. -Toradol added. -treatment as above. DVT Prophylaxis: low risk, ambulation Discharge Planning: Anticipate d/c in 1-2 days once bronchitis is improved
--- NOTE | 2018-01-24 12:33 | XR ---
EXAM DATE: 01/24/2018 12:31 PM EDT AGE/SEX: 32 years / Female INDICATIONS: Shortness of breath and chest pain. CLINICAL DATA: This is the patient's subsequent encounter. Patient reports that signs and symptoms h ave been present for 2 days and indicates a pain score of 7/10. MEDICAL/SURGICAL HISTORY: Asthma. None. COMPARISON: [facility] – [place], CHEST 1V SINGLE AP, 01/21/2018. . FINDINGS: A single AP view of the chest demonstrates the lungs to be symmetrically aerated without evidence of mass, infiltrate or effusion. The cardiomediastinal contours are unremarkable. Osseous structures a re intact. CONCLUSION: Negative examination. Electronically signed by: Erwin Norman MD 01/24/2018 12:31 PM EDT
[2018-01-25] MEDS: MethylPREDNISolone Sod Succinate Inj 40 MG/ML Vial IV.PUSH SCH (04:12)
[2018-01-25] MEDS: guaiFENesin/Codeine Syrup 200 MG/20 MG 10 ML UDC PO PRN ×2 (04:13→08:05)
[2018-01-25 08:15] VITALS: O2SAT 96
[2018-01-25 08:47] VITALS: BP 138/67; TEMP 98.1
[2018-01-25 08:56] VITALS: PULSE 86; RESP 20
--- NOTE | 2018-01-25 09:52 | P.DS ---
Date of admission: 01/21/18 13:03 Primary care physician: No Primary Care Physician Anticipated date of discharge: 01/25/18 Brief History from admission: 32-year-old female with history of asthma presents with a 2 day history of worsening cough, shortness breath, and wheezing. 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 She states her cough became so bad that she started to feel very lightheaded with near-syncope. She also reports wheezing and shortness of breath, worse with minimal exertion. She has been using her home Spiriva and pro-air without any relief. She denies fevers or chills. She was last hospitalized in June 2017 for an asthma exacerbation after an upper respiratory infection. She has never been hospitalized. Denies any lower extremity swelling or calf pain. Denies any chest pain other than feeling sore all over with coughing. Denies any other medical complaints. Patient update on day of discharge: The patient was feeling better. She requested a note for work. She would like to go back to work on Friday. She said she had her inhalers at home. Discussed with nursing. DS: Diagnosis - Discharge Diagnosis (1) Asthma exacerbation Status: Acute DS: Medications - Discharge Medications Prescriptions: codeine-guaifenesin 10 ml PO Q6H PRN #118 ml PRN Reason: Cough prednisone 10 mg PO DAILY #3 tab prednisone 20 mg PO BID #6 tab prednisone 20 mg PO DAILY #3 tab DS: Summary Hospital Course: Acute asthma exacerbation Patient with significant wheezing on exam. CXR reviewed, no acute findings. Repeat CXR also negative. We continued steroids with IV Solu-Medrol 40 mg q8h. We continued bronchodilators with DuoNeb's q6h standing and q2h prn. We advised to avoid exposure to allergens, patient works in construction, recently installing drywall, advised to wear mask. Also advised to stop smoking marijuana. She received Robitussin AC prn. We d/c Tessalon Perles as they caused the pt's cough to get worse. She received incentive spirometry and we encouraged ambulation. She will be discharged on a prednisone taper. She received pain control as needed for muscle pain associated with coughing. She will follow up with her PCP. She will resume her inhaler regimen upon discharge. - Time Spent with Patient Total time spent providing and/or coordinating discharge services: Less than 30 minutes Exam Vital signs: Vital Signs 01/24/18 12:00 01/24/18 15:47 01/24/18 16:00 Temperature 97.8 F 98 F Pulse Rate 79 82 78 Respiratory Rate 16 15 18 Blood Pressure 122/66 132/64 Pulse Oximetry 96 97 01/24/18 19:41 01/24/18 20:00 01/25/18 00:00 Temperature 97.9 F 97.6 F Pulse Rate 114 H 120 H 94 H Respiratory Rate 20 18 17 Blood Pressure 129/65 Pulse Oximetry 97 98 01/25/18 04:00 01/25/18 04:14 01/25/18 08:00 Temperature 97.8 F 98.1 F Pulse Rate 77 79 77 Respiratory Rate 18 15 18 Blood Pressure 115/64 138/67 Pulse Oximetry 99 99 01/25/18 08:11 01/25/18 08:55 Temperature Pulse Rate 86 Respiratory Rate 20 Blood Pressure Pulse Oximetry 96 96 Intake & Output 01/24/18 01/25/18 01/25/18 18:59 06:59 18:59 Intake Total 460 / 460 Output Total Balance - / -1 460 / 460 Weight 77 kg Intake: Oral 460 / 460 Output: Stool Other: # Voids 4 Date of Last Bowel Movement 01/23/18 01/23/18 Narrative: GENERAL: Well-nourished, well-developed patient in [facility]. SKIN: Warm and dry. No rash. HEENT: Normocephalic. Atraumatic. Pupils equal and round. Mucous membranes pink and moist. NECK: Supple. Trachea midline. CARDIOVASCULAR: Regular rate and rhythm. No murmur appreciated. RESPIRATORY: Diffuse wheezing, improved. GASTROINTESTINAL: Abdomen soft, non-tender, nondistended. Normoactive bowel sounds x4. MUSCULOSKELETAL: No obvious deformities. Extremities without clubbing, cyanosis , or edema. Bilateral calves nontender to palpation. NEUROLOGICAL: Awake and alert. No obvious cranial nerve deficits. Motor grossly within normal limits. Moving all extremities spontaneously. Normal speech. PSYCHIATRIC: Appropriate mood and affect; insight and judgment normal. Results Procedures completed during hospitalization: None - Impressions ITS Impressions Chest X-Ray 01/24/18 11:24 CONCLUSION: Negative examination. Discharge Plan - Discharge Disposition Patient Disposition: 01 Discharge Home - Discharge Condition Condition: Stable - Discharge Order Discharge Orders: Discharge Order (Routine); Ordered 01/25/18 Ordered By: See Osman - Discharge Details Anticipated Discharge Date: 01/25/18 - Physicians Team Primary Care Provider: Primary Care Anne,No Attending Provider: See Osman
[2018-01-25] MEDS: LORazepam 0.5 MG Tablet PO PRN (11:22)
== END 2018-01-25 15:30 | disposition home or self-care (01) ==
LOC: NEPD 10:24 → NEDA 10:24 → N05 15:34
PROVIDERS: ADMIT Hospitalist; ATTEND Hospitalist
DX: M54.9 Dorsalgia, unspecified; J45.901 Unspecified asthma with (acute) exacerbation; F12.90 Cannabis use, unspecified, uncomplicated; Z90.49 Acquired absence of other specified parts of digestive tract; R55 Syncope and collapse; R06.82 Tachypnea, not elsewhere classified; R42 Dizziness and giddiness; F17.200 Nicotine dependence, unspecified, uncomplicated